=== PATIENT | female | born 1975 | race Caucasian/White ===

== ENCOUNTER 2022-08-27 16:29 | Inpatient (IN) | payer BC, MEDICAID, SELFPAY ==
[2022-08-27] VITALS (55 sets, daily range): BP systolic 119–162; BP diastolic 84–121; PULSE 74–108; RESP 14–28; TEMP 36.7; O2SAT 93–100
--- NOTE | 2022-08-27 | XRR_ITS ---
PROCEDURE INFORMATION: Exam: XR Chest Exam date and time: 08/27/2022 4:46 PM Age: 47 years old Clinical indication: Pain; Hip; Left; Additional info: Fall/trauma/pain TECHNIQUE: Imaging protocol: Radiologic exam of the chest. Views: 1 view. COMPARISON: No relevant prior studies available. FINDINGS: Lungs: Unremarkable. No consolidation. Pleural spaces: Unremarkable. No pleural effusion. No pneumothorax. Heart/Mediastinum: Unremarkable. No cardiomegaly. Bones/joints: Slight scoliosis. IMPRESSION: No acute findings MTDD
--- NOTE | 2022-08-27 16:36 | XRR_ITS ---
PROCEDURE INFORMATION: Exam: XR Chest Exam date and time: 08/27/2022 4:46 PM Age: 47 years old Clinical indication: Pain; Hip; Left; Additional info: Fall/trauma/pain TECHNIQUE: Imaging protocol: Radiologic exam of the chest. Views: 1 view. COMPARISON: No relevant prior studies available. FINDINGS: Lungs: Unremarkable. No consolidation. Pleural spaces: Unremarkable. No pleural effusion. No pneumothorax. Heart/Mediastinum: Unremarkable. No cardiomegaly. Bones/joints: Slight scoliosis.
--- NOTE | 2022-08-27 16:36 | XRR_ITS ---
PROCEDURE INFORMATION: Exam: XR Left Hip Exam date and time: 08/27/2022 4:46 PM Age: 47 years old Clinical indication: Hip pain; Left hip; Additional info: Fall/trauma/severe pain; One view pelvis too please TECHNIQUE: Imaging protocol: Radiologic exam of the Left hip. Views: 2 or 3 views hip with pelvis when performed. COMPARISON: No relevant prior studies available. FINDINGS: Bones/joints: Moderately displaced and comminuted acute left hip intertrochanteric fracture. No femoral head dislocation. Soft tissues: Unremarkable. XR/XR hip LT 2-3V wo/w pel* [id number] IMPRESSION: Left hip acute surgical fracture.
--- NOTE | 2022-08-27 16:37 | ED_ITS ---
Documented by User: MYRTLE Hui 09/10/22 07:02 HPI - Extremity Injury (Lower) General: Chief Complaint: Extremity Injury, Lower Stated Complaint: LEG PAIN Time Seen by Provider: 08/27/22 16:32 Source: patient and EMS Mode of arrival: EMS Limitations: no limitations History of Present Illness: Patient is a 47-year-old female presents to ED today via EMS for complaints of severe left hip and thigh pain following a fall. Patient states she tripped over her shoelaces and fell directly onto the left hip and has had excruciating pain ever since. She denies any other injury sustained during the fall. She has no known medical problems. complaint: hip injury and thigh injury Onset (ago): minute(s) Injury: Left: hip Place: home Severity: severe Relieving factors: nothing Exacerbating factors: movement and palpation Context: fall and direct blow Associated symptoms: Reports inability to bear weight Other symptoms: none Review of Systems 2 Card: Denies: chest pain Resp: Denies: dyspnea GI: Denies: abdominal pain : Denies: flank pain Musc: Reports: joint pain (L hip ); Denies: neck pain or back pain Neuro: Denies: headache(s), numbness in extremities, weakness in extremities or sensory changes PFS ED PFSH: Medical History (Updated 09/01/22 @ 00:00 by PROSPER Ivory) Fracture, intertrochanteric, left femur IBS (irritable bowel syndrome) Sciatic nerve injury Surgical History (Updated 08/27/22 @ 19:31 by Santiago Alvarez MD) No pertinent past surgical history Family History (Updated 08/27/22 @ 19:32 by Santiago Alvarez MD) Denies family history of Chronic kidney disease (CKD) Social History (Updated 08/27/22 @ 19:33 by Santiago Alvarez MD) Smoking and tobacco status: never smoked Alcohol intake: never Physical Exam Const: COMMON NORMALS: average body habitus, patient oriented x3, no limitations, healthy appearing, alert and well nourished GENERAL APPEARANCE: cooperative and in distress (pt in significant discomfort) HENMT: COMMON NORMALS: normocephalic and atraumatic HEAD & SCALP: normal to inspection, normocephalic and atraumatic FACE & SINUS: normal facial exam Neck/C-Spine: COMMON NORMALS: full ROM GENERAL: Yes normal visual inspection CERVICAL SPINE: No pain with cervical ROM and No Cervical spine tenderness Chest: COMMONS NORMALS: normal inspection of the chest and normal palpation of entire chest wall Resp: COMMON NORMALS: normal respiratory effort and clear to auscultation bilaterally AUSCULTATION: clear to auscultation bilaterally Cardio: COMMON NORMALS: regular rhythm RATE: tachycardic (thought to be a response to pain as patient is extremely uncomfortable) RHYTHM: regular rhythm GI: COMMON NORMALS: Normal to inspection, nondistended, normoactive bowel s ounds present, Soft to palpation and non-tender PALPATION: Yes Soft to pa lpation : COMMON NORMALS: Yes no CVA tenderness BLADDER/KIDNEY EXAM: Yes no CVA tenderness Back/Pelvis: COMMON NORMALS: no CVA tenderness, thoracic and lumbar spine normal to inspection, no thoracic nor lumbar tenderness and thoraco-lumbar ROM normal Extremity: GENERAL: Yes normal exam except as noted LEFT LOWER EXTREMITY: Yes hip joint and Yes upper leg OTHER: patient having severe pain to anteriolateral portion of L hip and proximal thi gh; there does appear to be appreciable swelling noted; no ecchymosis; no obvious dislocation however full palpation/ROM testing were unable to be performed secondary to pain; she has good distal pulses, cap refill, and sensation Neuro: STACIA COMA SCALE: document GCS findings Whitethorn coma scale eye opening: Spontaneous Stacia coma scale verbal response: Orientated Stacia coma scale motor response: Obey commands Whitethorn coma scale total score: 15 COMMON NORMALS: patient oriented x3 SENSORIUM/ORIENTATION: Yes alert Skin: TRAUMA: no lacerations or abrasions Course Consultations: Consultation #1: Dr. Gallegos-recommends admit to hospitalist and he will consult on patient, would like XRs of her pelvis, femur, knee, recommend pain medications, ice, elevation, nonweightbearing, NPO at midnight, plan for OR tomorrow Vital Signs: Vital signs: Vital Signs Temperature 97.8 F 08/31/22 12:39 Pulse Rate 101 H 08/31/22 12:39 Respiratory Rate 18 08/31/22 12:39 Blood Pressure 157/82 08/31/22 12:39 Pulse Oximetry 99 08/31/22 12:39 Oxygen Delivery Me thod 08/31/22 08:00 Oxygen Flow Rate 2 08/28/22 09:21 MDM - Extremity Injury (Lower) Medical Decision Making With a surgical hip fracture. I spoken to Dr. Gallegos who recommends admission to hospitalist and he will consult. I have spoken to Dr. Romero and he will assume care of patient and speak to hospitalist. Lab Data 08/27/22 17:06 08/27/22 17:06 Radiology Impressions Femur X-Ray 08/27/22 17:13 IMPRESSION: 1. Left hip acute surgical fracture. 2. The mid to distal left femur shows no acute fracture. Knee X-Ray 08/27/22 17:13 IMPRESSION: No acute findings. Pelvis X-Ray 08/27/22 17:13 IMPRESSION: Left hip acute surgical fracture. Hip/Pelvis X-Ray 08/28/22 08:27 IMPRESSION: 1. Internal orthopedic fixation involving an intertrochanteric fracture of the left hip. Alignment is satisfactory for healing. Abdomen Ultrasound 08/30/22 13:23 IMPRESSION: 1. Normal gallbladder. 2. No renal obstruction. 3. Nonvisualization of the pancreas. Pelvis Ultrasound 08/30/22 13:23 IMPRESSION: Unremarkable transabdominal pelvic ultrasound. No endometrial abnormality. Recommend follow-up transvaginal imaging of the endometrium is vaginal bleeding persists. Laboratory Results WBC 14.7 10^3/uL (4.0-10.0) H 08/27/22 17:06 RBC 3.05 10^6/uL (4.1-5.3) L 08/27/22 17:06 Hgb 11.1 g/dL (11.5-15.3) L 08/27/22 17:06 Hct 33.1 % (37.0-47.0) L 08/27/22 17:06 MCV 108.5 fl (81-99) H 08/27/22 17:06 MCH 36.4 pg (28.0-34.0) H 08/27/22 17:06 MCHC 33.5 g/dL (30.0-36.0) 08/27/22 17:06 RDW 12.5 % (12.1-15.1) 08/27/22 17:06 Plt Count 250 10^3/cmm (130-400) 08/27/22 17:06 MPV 9.2 fL (7.4-10.4) 08/27/22 17:06 Neut % (Auto) 71.2 % 08/27/22 17:06 Lymph % (Auto) 20.4 % 08/27/22 17:06 Brooke % (Auto) 6.9 % 08/27/22 17:06 Eos % (Auto) 0.4 % 08/27/22 17:06 Baso % (Auto) 0.5 % 08/27/22 17:06 Neut # (Auto) 10.47 10^3/uL (1.8-7.7) H 08/27/22 17:06 Lymph # (Auto) 3.0 10^3/uL (0.8-4.8) 08/27/22 17:06 Brooke # (Auto) 1.0 10^3/uL (0.2-0.9) H 08/27/22 17:06 Eos # (Auto) 0.1 10^3/uL (0.0-0.8) 08/27/22 17:06 Baso # (Auto) 0.1 10^3/uL (0.0-0.1) 08/27/22 17:06 Nucleated RBC % (auto) 0 % 08/27/22 17:06 Nucleated RBCs # 0.0 /100WBC 08/27/22 17:06 Sodium 133 mmol/L (136-145) L 08/27/22 17:06 Potassium 3.7 mmol/L (3.5-5.1) 08/27/22 17:06 Chloride 97 mmol/L (98-107) L 08/27/22 17:06 Carbon Dioxide 22 mmol/L (22-29) 08/27/22 17:06 Anion Gap 17.7 (5-19) 08/27/22 17:06 BUN 8 mg/dL (6-20) 08/27/22 17:06 Creatinine 0.7 mg/dL (0.5-0.9) 08/27/22 17:06 GFR Calculation 90.5 mL/min (90-130) 08/27/22 17:06 Glucose 174 mg/dL (65-115) H 08/27/22 17:06 Calculated Osmolality 279 mOsm/kg (285-295) L 08/27/22 17:06 Calcium 9.1 mg/dL (8.5-10.5) 08/27/22 17:06 Total Bilirubin 0.4 mg/dL (0.15-1.2) 08/27/22 17:06 AST 41 U/L (0-32) H 08/27/22 17:06 ALT 21 U/L (0-33) 08/27/22 17:06 Alkaline Phosphatase 110 U/L (35-105) H 08/27/22 17:06 Total Protein 7.3 g/dL (6.6-8.7) 08/27/22 17:06 Albumin 4.1 g/dL (3.5-5.2) 08/27/22 17:06 Globulin 3.2 g/dL (1.3-4.6) 08/27/22 17:06 Procalcitonin 0.03 ng/mL (0-0.5) 08/27/22 18:27 TSH 5.69 uIU/mL (0.27-4.20) H 08/27/22 18:27 Discharge Plan Discharge Patient Disposition: Admitted As Inpatient Admit Provider: Agnes Monroy Clinical Impression: Fracture of femoral neck, left Condition: Stable Discharge Diet: Advance as tolerated Discharge Activity: Increase activity as tolerated Coding Level of Care Code ED Provider Contracting Consultant for Chg Fwd Exam Comprehensive Documented by User: Manoj Romero MD 08/27/22 17:38 HPI - Extremity Injury (Lower) General: Chief Complaint: Extremity Injury, Lower Stated Complaint: LEG PAIN Time Seen by Provider: 08/27/22 16:32 [facility] ED PFSH: Medical History (Updated 09/01/22 @ 00:00 by PROSPER Ivory) Fracture, intertrochanteric, left femur IBS (irritable bowel syndrome) Sciatic nerve injury Surgical History (Updated 08/27/22 @ 19:31 by Santiago Alvarez MD) No pertinent past surgical history Family History (Updated 08/27/22 @ 19:32 by Santiago Alvarez MD) Denies family history of Chronic kidney disease (CKD) Social History (Updated 08/27/22 @ 19:33 by Santiago Alvarez MD) Smoking and tobacco status: never smoked Alcohol intake: never Physical Exam Neuro: STACIA COMA SCALE: document GCS findings Whitethorn coma scale total score: 15 Course Vital Signs: Vital signs: Vital Signs Temperature 97.8 F 08/31/22 12:39 Pulse Rate 101 H 08/31/22 12:39 Respiratory Rate 18 08/31/22 12:39 Blood Pressure 157/82 08/31/22 12:39 Pulse Oximetry 99 08/31/22 12:39 Oxygen Delivery Me thod 08/31/22 08:00 Oxygen Flow Rate 2 08/28/22 09:21 MDM - Extremity Injury (Lower) Medical Decision Making With a surgical hip fracture. I spoken to Dr. Gallegos who recommends admission to hospitalist and he will consult. I have spoken to Dr. Romero and he will assume care of patient and speak to hospitalist. Received signout from Negin. Patient here after mechanical fall with left femoral neck fracture. I discussed the case with Dr. Monroy the hospitalist and she will admit with surgery consult. Lab Data 08/27/22 17:06 08/27/22 17:06 Radiology Impressions Femur X-Ray 08/27/22 17:13 IMPRESSION: 1. Left hip acute surgical fracture. 2. The mid to distal left femur shows no acute fracture. Knee X-Ray 08/27/22 17:13 IMPRESSION: No acute findings. Pelvis X-Ray 08/27/22 17:13 IMPRESSION: Left hip acute surgical fracture. Hip/Pelvis X-Ray 08/28/22 08:27 IMPRESSION: 1. Internal orthopedic fixation involving an intertrochanteric fracture of the left hip. Alignment is satisfactory for healing. Abdomen Ultrasound 08/30/22 13:23 IMPRESSION: 1. Normal gallbladder. 2. No renal obstruction. 3. Nonvisualization of the pancreas. Pelvis Ultrasound 08/30/22 13:23
[2022-08-27] MEDS: morphine 4 mg/mL SDV 1 mL IVP (16:44)
[2022-08-27] MEDS: ondansetron 2 mg/ML SDV 2 mL 4 MG IVP (16:45)
[2022-08-27] MEDS: sodium chloride 0.9% 1,000 ML 999 ML IV ×2 (17:08→19:44)
--- NOTE | 2022-08-27 17:13 | XRR_ITS ---
PROCEDURE INFORMATION: Exam: XR Left Knee Exam date and time: 08/27/2022 6:07 PM Age: 47 years old Clinical indication: Injury or trauma; Fall; Fracture, traumatic; Closed fracture; Femur; Left; Additional info: Fall, trauma TECHNIQUE: Imaging protocol: Radiologic exam of the Left knee. Views: 3 views. COMPARISON: No relevant prior studies available. FINDINGS: Bones/joints: No acute fracture or dislocation is noted. The skeletal structures seem age-appropriate. Soft tissues: Unremarkable. XR/XR knee LT 3V* [id number] IMPRESSION: No acute findings.
--- NOTE | 2022-08-27 17:13 | XRR_ITS ---
PROCEDURE INFORMATION: Exam: XR Left Femur Exam date and time: 08/27/2022 6:07 PM Age: 47 years old Clinical indication: Injury or trauma; Fall; Fracture, traumatic; Closed fracture; Femur and patella or knee; Left; Additional info: Fall/trauma TECHNIQUE: Imaging protocol: Radiologic exam of the Left femur. Views: 2 views. COMPARISON: CR (PELVIS, ) 08/27/2022 4:46 PM FINDINGS: Bones/joints: Moderately displaced and comminuted acute left hip intertrochanteric fracture. No femoral head dislocation. Soft tissues: Mild left thigh soft tissue swelling. XR/XR femur LT min 2V* [id number] IMPRESSION: 1. Left hip acute surgical fracture. 2. The mid to distal left femur shows no acute fracture.
--- NOTE | 2022-08-27 17:13 | XRR_ITS ---
PROCEDURE INFORMATION: Exam: XR Pelvis Exam date and time: 08/27/2022 6:07 PM Age: 47 years old Clinical indication: Pain and injury or trauma; Fall; Fracture of pelvis & hip; Traumatic fracture; Neck of femur; Closed fracture; Hip pain; Left hip; Injury date: 08/27/22; Additional info: Fall, trauma TECHNIQUE: Imaging protocol: Radiologic exam of the pelvis. Views: 1 or 2 view. COMPARISON: CR (PELVIS, ) 08/27/2022 4:46 PM FINDINGS: Bones/joints: Moderately displaced and comminuted acute left hip intertrochanteric fracture. No femoral head dislocation. Soft tissues: Unremarkable. XR/XR pelvis 1-2V* [id number] IMPRESSION: Left hip acute surgical fracture.
[2022-08-27 17:15] LABS: Basophils # 0.1 10^3/uL (0.0-0.1); Basophils % 0.5 %; Eosinophils # 0.1 10^3/uL (0.0-0.8); Eosinophils % 0.4 %; Hematocrit 33.1 % (37.0-47.0); Hemoglobin 11.1 g/dL (11.5-15.3); Lymphocytes % 20.4 %; Mean Corpuscular HGB Conc 33.5 g/dL (30.0-36.0); Mean Corpuscular Hemoglobin 36.4 pg (28.0-34.0); Mean Corpuscular Volume 108.5 fl (81-99); Mean Platelet Volume 9.2 fL (7.4-10.4); Monocytes % 6.9 %; Neutrophils # 10.47 10^3/uL (1.8-7.7); Neutrophils % 71.2 %; Nucleated Red Blood Cells % 0 %; Platelet Count 250 10^3/cmm (130-400); Red Blood Count 3.05 10^6/uL (4.1-5.3); Red Cell Distribution Width 12.5 % (12.1-15.1); White Blood Count 14.7 10^3/uL (4.0-10.0)
--- NOTE | 2022-08-27 17:38 | ECG_ITS ---
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 Measurements Intervals Ola Rate: 97 P: 75 NH: 123 QRS: 76 QRSD: 97 T: 63 QT: 367 QTc: 468 Interpretive Statements SINUS RHYTHM POSSIBLE LEFT ATRIAL ENLARGEMENT [-0.1mV P-WAVE IN V1/V2] MODERATE ST DEPRESSION [0.05+ mV ST DEPRESSION] No previous ECG available for comparison Electronically Signed On 08-27-2022 19:49:17 INFANT AND TODDLER TEACHER by Serge Sampson M.D. [email or web address]
[2022-08-27 17:39] LABS: Alanine Aminotransferase 21 U/L (0-33); Albumin Level 4.1 g/dL (3.5-5.2); Alkaline Phosphatase 110 U/L (35-105); Anion Gap 17.7 (5-19); Aspartate Amino Transferase 41 U/L (0-32); Blood Urea Nitrogen 8 mg/dL (6-20); Calcium 9.1 mg/dL (8.5-10.5); Carbon Dioxide 22 mmol/L (22-29); Chloride 97 mmol/L (98-107); Globulin 3.2 g/dL (1.3-4.6); Glomerular Filtration Rate 90.5 mL/min (90-130); Glucose 174 mg/dL (65-115); Osmolality Calculated 279 mOsm/kg (285-295); Potassium 3.7 mmol/L (3.5-5.1); Sodium 133 mmol/L (136-145); Total Bilirubin 0.4 mg/dL (0.15-1.2); Total Protein 7.3 g/dL (6.6-8.7)
[2022-08-27] MEDS: HYDROmorphone 1 mg/mL INJ 1 mL 0.5 MG IVP (17:53)
--- NOTE | 2022-08-27 18:38 | P.HP_ITS ---
Providers/Chief Complaint Primary Care Provider: Rand Moy Chief Complaint: LEG PAIN History of Present Illness Madeline Chavez is a 47 year old female who presents today after sustaining a fall on concrete ground at a gas station. Patient is stating that she does not have any significant medical history other than sciatica, IBS, she does not have any history of diabetes hypertension CHF or diabetes, today she tripped over because of her untied shoelaces at the gas station and sustained a fall. In the ER she has been diagnosed with left femoral neck fracture Dr. Gallegos has been consulted. She is going for surgery in the morning. She is hypertensive at the time of evaluation, left leg is shortened and rotated outwards I have requested Teresa catheter placement. She is very anxious at this point Review of Systems Const: Denies: fever(s) Eyes: Denies: change in vision ENMT: Denies: throat pain Card: Denies: chest pain Resp: Denies: dyspnea GI: Denies: abdominal pain : Denies: flank pain Musc: Denies: neck pain Skin/Breast: Denies: rash Neuro: Denies: headache(s) Psych: Reports: anxiety Endo: Denies: polyuria Jignesh/Lymph: Denies: easy bruising All/Imm: Denies: urticaria Medications/Allergies Home Medications Medication Instructions Recorded Confirmed Last Taken Type dicyclomine 20 mg tablet 20 mg PO DAILY PRN IBS Symptoms 08/27/22 08/27/22 Unknown History gabapentin 300 mg capsule 300 mg PO DAILY PRN Pain 08/27/22 08/27/22 Unknown History Allergies Allergy/AdvReac Type Severity Reaction Status Date / Time No Known Allergies Allergy Verified 08/27/22 16:35 PFSH Acute PFSH: Medical History (Updated 08/27/22 @ 19:31 by Santiago Alvarez MD) IBS (irritable bowel syndrome) Sciatic nerve injury Surgical History (Updated 08/27/22 @ 19:31 by Santiago Alvarez MD) No pertinent past surgical history Family History (Updated 08/27/22 @ 19:32 by Santiago Alvarez MD) Denies family history of Chronic kidney disease (CKD) Social History (Updated 08/27/22 @ 19:33 by Santiago Alvarez MD) Smoking and tobacco status: never smoked Alcohol intake: never Substance/Drug Use: never Vitals/I&O/Wt Last Vital Signs Temp 98.0 F 08/27/22 16:35 Pulse 108 H 08/27/22 16:35 Resp 20 H 08/27/22 17:53 BP 161/121 08/27/22 17:50 Pulse Ox 97 08/27/22 17:50 Weight last 48 hrs Weight 56.699 kg Physical Exam Narrative: Patient is awake and alert Anxious appearing Tachycardic and hypertensive Left leg is rotated outward and is short No signs of vascular compromise EOMI, PERRLA Abdomen soft S1, S2 sinus tachycardia Family is at the bedside Data 08/27/22 17:06 08/27/22 17:06 A&P Assessment and plan (1) Fracture of femoral neck, left: Plan Hip fracture N.p.o. after midnight Dr. Gallegos has been consulted DVT prophylaxis with SCDs Opioids along bowel regimen Gentle fluid hydration overnight Considering young age, patient does not need any cardiac work-up before her surgery Will check TSH Full code Attestations Medical Necessity Statement*: Anticipating more than 2 midnights for management of hip fracture Time Spent in Patient Care: 40 Coding Level of Care Code Acute Tinning Machine Set Up Operator for Daniela Fwd Diagnoses Fracture of femoral neck, left S72.002A
[2022-08-27 19:06] LABS: Procalcitonin 0.03 ng/mL (0-0.5)
[2022-08-27] MEDS: enoxaparin 40 mg/0.4 mL Syringe SUBCUT (19:47)
[2022-08-27] MEDS: HYDROmorphone 1 mg/mL INJ 1 mL IVP (21:06)
--- NOTE | 2022-08-27 21:07 | PC.NURSE ---
pt report taken by No CASTRO.
--- NOTE | 2022-08-27 21:42 | P.CONIM_ITS ---
Providers/Reason For Consult Consulting Physician/Specialty*: Kadeem Gallegos DO/orthopedic surgery Reason for Consult*: Displaced left intertrochanteric femur fracture Requesting Physician: Negin Ness PA-C Attending Physician: Agnes Monroy MD Primary Care Provider: Rand Moy History of Present Illness History of Present Illness Madeline Chavez is a 47 year old female who sustained a ground-level fall directly onto her left hip very hard on concrete. She states she knew when she was following that she was going to break something. Patient denies any prior pain in her left hip prior to injury. She is a community ambulator. She has a 20- year history of smoking but has quit. She denies any heart or lung issues at baseline. Denies being on any blood thinners. Denies any previous history of cancer or malignancy. Past medical history consistent with low back pain which she states she has a disc protrusion which she is on gabapentin at baseline and she does have sciatica. She did eat earlier this afternoon. She was brought to the emergency department and was found to have a displaced left intertrochanteric femur fracture. Hospitalist on board for admission and medical management preoperative clearance and orthopedics was consulted for treatment recommendations of left intertrochanteric femur fracture. Patient denies loss of consciousness or any other injuries or pain at this time. Patient's present with family at bedside. Review of Systems General: Reports: 10 or more systems reviewed and unremarkable except in HPI and below Const: Denies: fever(s) Card: Denies: chest pain Resp: Denies: dyspnea GI: Denies: nausea Musc: Reports: joint pain and joint swelling Medications/Allergies Home Medications Medication Instructions Recorded Confirmed Last Taken Type dicyclomine 20 mg tablet 20 mg PO DAILY PRN IBS Symptoms 08/27/22 08/27/22 Unknown History gabapentin 300 mg capsule 300 mg PO DAILY PRN Pain 08/27/22 08/27/22 Unknown History Allergies Allergy/AdvReac Type Severity Reaction Status Date / Time No Known Allergies Allergy Verified 08/27/22 16:35 Current Medications Generic Name Dose Route Start Last Admin Trade Name Freq PRN Reason Stop Dose Admin Enoxaparin Sodium 40 mg 08/27/22 18:15 08/27/22 19:47 Enoxaparin 40 Mg/0.4 Ml Syringe SUBCUT 40 mg Q24H ARTURO Administration PFSH Acute PFSH: Medical History (Updated 08/27/22 @ 19:31 by Santiago Alvarez MD) IBS (irritable bowel syndrome) Sciatic nerve injury Surgical History (Updated 08/27/22 @ 19:31 by Santiago Alvarez MD) No pertinent past surgical history Family History (Updated 08/27/22 @ 19:32 by Santiago Alvarez MD) Denies family history of Chronic kidney disease (CKD) Social History (Updated 08/27/22 @ 19:33 by Santiago Alvarez MD) Smoking and tobacco status: never smoked Alcohol intake: never Substance/Drug Use: never Vitals/I&O/Wt Last Vital Signs Temp 98.0 F 08/27/22 16:35 Pulse 74 08/27/22 21:32 Resp 14 08/27/22 21:32 BP 125/84 08/27/22 21:32 Pulse Ox 98 08/27/22 21:32 08/27/22 08/27/22 08/27/22 06:59 14:59 22:59 Intake Total 1999 Balance 1999 Weight last 48 hrs Weight 125 lb Physical Exam Narrative: Constitutional patient in severe discomfort secondary to pain. Examination guarded secondary to pain. Patient frail and appears slightly under nourished. HEENT atraumatic and normocephalic Respiratory?no acute respiratory distress no retractions Cardio?peripheral pulses palpable MSK?examination of the bilateral upper extremities demonstrates no tenderness palpation of the shoulders elbows wrists or hands with normal range of motion of these joints sensation tact light touch to the bilateral upper extremities distal pulses palpable. Examination of the right lower extremity demonstrates no tenderness to palpation of the right hip knee foot and ankle. She is able to gently range these joints with no pain or discomfort she has a negative logroll. Sensation tact light touch distally. Patient is able to wiggle her toes plantarflex and dorsiflex ankle. Examination of the left lower extremity tenderness to palpation of the left hip positive logroll. Unable to perform Stinchfield secondary to pain. She has sensation tact light touch at the SPN/DPN/tibial/saphenous/sural nerve distribution. She is able to wiggle her toes as well as EHL is intact. She can only subtly plantarflex her foot and unwilling to dorsiflex secondary to pain and discomfort. Mild tenderness to palpation at the left knee. Distal pulses palpable. Compartments are soft compressible. Data 08/27/22 17:06 08/27/22 17:06 Xray Ortho: My impression: X-rays of the pelvis, femur hip and knee reviewed in person interpreted by myself demonstrating comminuted and displaced left intertrochanteric femur fracture. No pathologic lesion noted. No other fracture dislocations noted. A&P Assessment and plan (1) Fracture of femoral neck, left: Plan Hip fracture N.p.o. after midnight Internal medicine as primary and appreciate medical management?preoperative clearance DVT prophylaxis with SCDs, hold a.m. anticoagulation will transition to Lovenox postoperatively Nonweightbearing left lower extremity Images reviewed Labs reviewed Plan for OR tomorrow for left intertrochanteric femur fracture ORIF with cephalomedullary nail. Detailed op treatment options for patient as far as nonoperative and operative intervention. This point time for pain control as well as early mobilization would recommend surgical intervention. She detail out the risk benefits complications alternatives to surgical intervention. Risks of surgery include but not limited to make it better, make it worse, malunion, nonunion hardware failure, infection, blood clot, heart attack, stroke, on the table, injury to nerves or vessels. Understanding these risks he agrees to proceed with surgical intervention. All questions been answered at this time. We will add her onto the surgery schedule tomorrow ismael ayaan for a left intertrochanteric femur fracture open reduction internal fixation with cephalomedullary nail. Review of her images demonstrate no evidence of a pathologic injury. At this point time do not feel as though any further need on imaging is necessary at we will treat with ORIF. Did discuss with patient and we will send some of patient's canal reamings to pathology to rule out make sure there is no evidence of any pathologic lesion which is always just given patient's younger age to sustain hip fracture. However I do feel she did have a higher energy of a direct fall on hard concrete and was unfortunately unable to brace herself and patient does have within her body type with slight malnutrition. We will take care for surgery tomorrow. All questions been answered at this time. 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
[2022-08-27] MEDS: temazepam 15 mg Capsule PO (21:57)
[2022-08-27] MEDS: morphine IR 15 mg Tablet PO (21:57)
[2022-08-27] MEDS: ALPRAZolam 0.5 mg Tablet PO (21:57)
[2022-08-27] MEDS: sodium chloride 0.9% 1,000 ML 75 ML IV (22:00)
[2022-08-27 22:46] LABS: Thyroid Stimulating Hormone 5.69 uIU/mL (0.27-4.20)
[2022-08-27 23:21] LABS: Add Urine Microscopic? NO; Charge for UA Resulting for Rev
[2022-08-27] MEDS: HYDROmorphone 1 mg/mL INJ 1 mL 0.4 MG IVP (23:26)
--- NOTE | 2022-08-27 23:28 | PC.NURSE ---
Referred pt to Dr. Alvarez for review of uncontrolled pain. NO received and noted for Dilaudid 0.4mg IVP x 1 dose now. Dilaudid pulled from [facility] and administered.
[2022-08-28] VITALS (30 sets, daily range): BP systolic 112–151; BP diastolic 67–100; PULSE 83–120; RESP 10–18; TEMP 36.6–37.5; O2SAT 94–100
--- NOTE | 2022-08-28 | XR_ITS ---
WS: [id number] Exam: XR hip LT 2-3V wo/w pel* [id number] Date/Time of Exam: 08/28/2022 12:00 AM Reason For Exam: orif left hip Intraoperative C-arm images of the left hip are submitted for evaluation. Intertrochanteric fracture of the left hip is now stabilized with an intramedullary adrienne and femoral n crow screw. Alignment appears to be satisfactory for healing. XR/XR hip LT 2-3V wo/w pel* [id number] IMPRESSION: 1. Satisfactory ORIF involving an intertrochanteric fracture of the left hip.
[2022-08-28 00:08] LABS: Bilirubin Urine Neg (Negative); Blood Urine Neg (Negative); Glucose Urine UA Norm (Normal); Ketones Urine Negative (Negative); Leukocyte Esterase Urine Negative (Negative); Nitrate Urine Negative (Negative); Protein Urine Neg (Negative); Urine Appearance Clear (CLEAR); Urine Color Yellow (Yellow); Urobilinogen Urine Norm (Negative); pH Urine 5 (5-7)
[2022-08-28 01:39] LABS: Anion Gap 13.2 (5-19); Blood Urea Nitrogen 6 mg/dL (6-20); Calcium 8.1 mg/dL (8.5-10.5); Carbon Dioxide 23 mmol/L (22-29); Chloride 105 mmol/L (98-107); Glomerular Filtration Rate 133.4 mL/min (90-130); Glucose 131 mg/dL (65-115); Magnesium 1.6 mg/dL (1.7-2.3); Osmolality Calculated 283 mOsm/kg (285-295); Potassium 4.2 mmol/L (3.5-5.1); Sodium 137 mmol/L (136-145)
[2022-08-28] MEDS: HYDROmorphone 1 mg/mL INJ 1 mL 0.2 MG IVP (03:11)
[2022-08-28] MEDS: morphine IR 15 mg Tablet PO (04:46)
--- NOTE | 2022-08-28 06:12 | PC.NURSE ---
Pt left for surgery at this time.
[2022-08-28 06:35] LABS: OR HCG Qualitative Urine Negative (Negative)
[2022-08-28] MEDS: sodium chloride 0.9% 1,000 ML 30 ML IV (06:38)
--- NOTE | 2022-08-28 06:53 | W.PM.OPSUD ---
Surgery/Procedure H&P Update DATE OF PROCEDURE: August 28, 2022 DATE H&P PERFORMED: 08/27/22 CHANGES TO PREVIOUS DOCUMENTATION: None. Patient's pain better under control unable to have better examination to the left lower extremity. Patient is able to wiggle toes as well as plantarflex and dorsiflex ankle. Sensation intact to light touch distally. Distal pulses palpable. Once again reviewed risk benefits complication alternatives surgical nonsurgical treatment options. Understanding her wrist she agrees to proceed with surgical intervention today. She has been medically optimized. PREOP DIAGNOSIS: Left intertrochanteric femur fracture PRIMARY INDICATION FOR PROCEDURE: Displaced left intertrochanteric femur fracture PLANNED PROCEDURE: Operation Date: 08/28/22 07:00 Proposed Procedures p Trochanteric Femoral Nail(Left) - Kadeem Gallegos DO
[2022-08-28] MEDS: HYDROmorphone 1 mg/mL INJ 1 mL 0.5 MG IVP ×3 (06:57→09:01)
[2022-08-28] MEDS: ceFAZolin 2,000 MG in sodium chloride 0.9% (plus) 50 ML 100 MG IV ×3 (07:02→23:45)
[2022-08-28] MEDS: tranexamic acid 1,000 mg/10mL SDV 1000 MG IV (07:25)
--- NOTE | 2022-08-28 07:30 | ANES.PREANE2 ---
Pre-Anesthetic Assessment Height/Weight: Weight 56.699 kg Temp Pulse Resp BP Pulse Ox O2 Del Method 98.9 F 100 18 140/89 99 08/28/22 06:20 08/28/22 06:20 08/28/22 06:57 08/28/22 06:20 08/28/22 06:20 08/28/22 06:20 Preop Diagnosis: Left intertrochanteric femur fracture Operation Date: 08/28/22 07:00 Proposed Procedures p Trochanteric Femoral Nail(Left) - Kadeem Gallegos DO Familial anesthetic complications: none Was Beta Vipul taken within 24 hours: N/A Was Clonidine taken within 24 hours: N/A Last intake: Intake Last Liquid Date 08/27/22 Last Liquid Time 23:30 Last Solid Date 08/27/22 Last Solid Time 19:00 Social No alcohol and No tobacco (h/o smoking) Exam alert, oriented x 3, clear to auscultation bilaterally and regular rate & rhythm Airway Submandibular: within normal limits Cervical ROM: within normal limits Mallampati: Class II Dentition: chipped Musc/skel Lower Back Pain (radicular symptoms) Anesthetic Plan ASA status: 2 Anesthesia: General Medications/Allergies Home Medications Medication Instructions Recorded Confirmed Last Taken Type dicyclomine 20 mg tablet 20 mg PO DAILY PRN IBS Symptoms 08/27/22 08/27/22 Unknown History gabapentin 300 mg capsule 300 mg PO DAILY PRN Pain 08/27/22 08/27/22 Unknown History Allergies Allergy/AdvReac Type Severity Reaction Status Date / Time No Known Allergies Allergy Verified 08/27/22 16:35 Current Medications Generic Name Dose Route Start Last Admin Trade Name Riosq PRN Reason Stop Dose Admin Alprazolam 0.5 mg 08/27/22 21:50 08/27/22 21:57 Alprazolam 0.5 Mg Tablet PO 0.5 mg BID PRN Administration AGITATION Enoxaparin Sodium 40 mg 08/27/22 18:15 08/27/22 19:47 Enoxaparin 40 Mg/0.4 Ml Syringe SUBCUT 40 mg Q24H ARTURO Administration Hydromorphone HCl 0.2 mg 08/27/22 21:50 08/28/22 03:11 Hydromorphone 1 Mg/Ml Inj 1 Ml IVP 0.2 mg Q4H PRN Administration pain Hydromorphone HCl 0.5 mg 08/28/22 06:45 08/28/22 06:57 Hydromorphone 1 Mg/Ml Inj 1 Ml IVP 0.5 mg ONCE PRN Administration For preop pain/anxiety Sodium Chloride 1,000 mls @ 75 mls/hr 08/27/22 18:15 08/27/22 22:00 Sodium Chloride 0.9% IV 75 mls/hr .[id number] ARTURO Administration Sodium Chloride 1,000 mls @ 30 mls/hr 08/28/22 06:30 08/28/22 06:38 Sodium Chloride 0.9% IV 30 mls/hr .Q24H ARTURO Administration Morphine Sulfate 15 mg 08/27/22 21:50 08/28/22 04:46 Morphine Ir 15 Mg Tablet PO 15 mg Q6H PRN Administration pAIN PFSH Anesthesia Medical History (Updated 08/27/22 @ 19:31 by Santiago Alvarez MD) IBS (irritable bowel syndrome) Sciatic nerve injury Surgical History (Updated 08/27/22 @ 19:31 by Santiago Alvarez MD) No pertinent past surgical history Family History (Updated 08/27/22 @ 19:32 by Santiago Alvarez MD) Denies family history of Chronic kidney disease (CKD) Social History (Updated 08/27/22 @ 19:33 by Santiago Alvarez MD) Smoking and tobacco status: never smoked Alcohol intake: never Substance/Drug Use: never Data Anesthesia 08/27/22 17:06 08/28/22 01:03 Short CBC 08/27/22 Range/Units 17:06 WBC 14.7 H (4.0-10.0) 10^3/uL Hgb 11.1 L (11.5-15.3) g/dL Hct 33.1 L (37.0-47.0) % MCV 108.5 H (81-99) fl Plt Count 250 (130-400) 10^3/cmm Neut % (Auto) 71.2 % Neut # (Auto) 10.47 H (1.8-7.7) 10^3/uL BMP 08/27/22 08/28/22 17:06 01:03 Sodium 133 L 137 Potassium 3.7 4.2 Chloride 97 L 105 Carbon Dioxide 22 23 BUN 8 6 Creatinine 0.7 0.5 Glucose 174 H 131 H Calcium 9.1 8.1 L Liver Function 08/27/22 Range/Units 17:06 Total Bilirubin 0.4 (0.15-1.2) mg/dL AST 41 H (0-32) U/L ALT 21 (0-33) U/L Alkaline Phosphatase 110 H (35-105) U/L Albumin 4.1 (3.5-5.2) g/dL Urine 08/27/22 Range/Units 23:17 Urine Color Yellow (Yellow) Urine Appearance Clear (CLEAR) Urine pH 5 (5-7) Ur Specific [place] 1.020 (1.005-1.030) Urine Protein Neg (Negative) Urine Glucose (UA) Norm (Normal) Urine Ketones Negative (Negative) Urine Nitrate Negative (Negative) Urine Bilirubin Neg (Negative) Ur Leukocyte Esterase Negative (Negative) Blood Bank 08/28/22 03:00 Blood Type O Positive Rho(D) Type Positive Antibody Screen Negative Cardiac Studies: No Data to Display
--- NOTE | 2022-08-28 08:27 | XR_ITS ---
WS: [id number] Exam: XR hip LT 2-3V wo/w pel* [id number] Date/Time of Exam: 08/28/2022 8:47 AM Reason For Exam: postop left troch nail Comparison 08/27/2022. There is an intertrochanteric fracture of the left hip stabilized with an intramedullary adrienne and femo ral neck screw. Alignment is satisfactory for healing. Surgical skin clips are noted laterally. XR/XR hip LT 2-3V wo/w pel* [id number] IMPRESSION: 1. Internal orthopedic fixation involving an intertrochanteric fracture of the left hip. Alignment is satisfactory for healing.
--- NOTE | 2022-08-28 08:33 | P.OP_ITS ---
Brief Operative Note Date of procedure: 08/28/22 Pre-op diagnosis: Left intertrochanteric femur fracture Post-op diagnosis: same Procedure Done: Left intertrochanteric femur fracture ORIF with cephalomedullary nail Surgeon: Kadeem Gallegos Estimated blood loss (mL): 150 Complications: None Post-op Plan: patient taken to PACU in stable condition. Patient tolerated procedure without issues. Dressing on in place clean dry and intact will return to the floor. Receive appropriate pain medication postoperative antibiotics, DVT prophylaxis and postoperative TXA. Will be weightbearing as tolerated left lower extremity work with PT/OT internal medicine is primary. We will follow-up with me in the office in 2 weeks. Condition: stable Disposition: floor Coding Level of Care Code Acute Polisher Eyeglass Frames for Daniela Gomez
--- NOTE | 2022-08-28 08:34 | PM.PACU ---
PACU note Narrative: Patient taken to PACU in stable condition dressing on in place clean dry and intact. Patient is able to wiggle toes plantarflex dorsiflex ankle sensation tact light touch distally. Pain controlled. Will return to the floor. Exam: awake Disposition: back to floor
--- NOTE | 2022-08-28 08:40 | P.OP_ITS ---
Operative Report Date of procedure: August 28, 2022 Pre-op diagnosis: Preop Diagnosis Left intertrochanteric femur fracture Post-op diagnosis: Same Procedure done: Left intertrochanteric femur fracture ORIF with cephalomedullary nail Implants: Daina gamma nail 11 mm x 180 mm x 125 degree 10.5 mm x 100 mm lag screw 5 mm x 37.5 mm distal interlocking screw Pathology: Given patient's young age intramedullary canal reamings were sent for pathology to rule out any pathologic fracture Surgeon: Kadeem Gallegos DO Estimated blood loss: 150 mL IV fluids: 400 mL Urine output: 100 mL Complications: None Findings: See operative report narrative Condition: stable Disposition: floor Brief History: Patient is a 47-year-old female who sustained a ground-level fall sustaining a left intertrochanteric femur fracture she is brought to the emergency department seen evaluated orthopedics consulted internal medicine admitted for primary medical management preoperative clearance. X-ray findings consistent with stable left intertrochanteric femur fracture. She was bedded and medically optimized by the internal medicine team. On evaluation she has a stable intertrochanteric femur fracture recommendation would be a short gamma nail for earlier mobilization and pain control. We talked about risk benefits complication alternatives to surgical nonsurgical treatment options. Understanding her risk for surgery she agrees to proceed with surgical intervention. Given her young age we will send reamings of the femur for pathology just to rule out any pathologic fracture however on x-ray imaging there is no sign of the lesion and history reveals she had no pain prior to the left hip. She understands and agrees to proceed with with surgery at this time. All questions answered consent obtained. Procedure: Patient was seen evaluated in the preoperative holding area. Consent was reviewed and signed with patient. Correct extremity was then marked. Seen evaluated by anesthesia Parman was cleared for surgery she was taken back to the operative suite. She was underwent anesthesia per the Anesthesia Department was then placed onto the [place] table. Patient was then appropriately secured all bony prominences well-padded. Once properly anesthetized a final timeout was performed. Patient received appropriate preoperative antibiotics. X-ray images large C-arm was then brought into the operative suite and evaluated the fracture. A standard close reduction was then performed showing satisfactory reduction. This was held in place and the left lower extremity was then prepped and draped in standard orthopedic fashion. This point time a standard 5 cm incision was made proximal to the greater trochanter directly lateral of the left hip. Sharp scalpel incision was made through skin and subcutaneous tissue. I then utilized a Barrera to split the fascia could come directly down onto the greater trochanter. Inserted starting guidewire and the tip of the greater trochanter and was satisfied with position on AP and lateral planes this was advanced right to the level of the lesser trochanter and confirmed on multiple orthogonal images. Once satisfied with starting point placement I then introduced my opening reamer. Introduced opening reamer at this point time I subsequently passed my long ball-tipped guidewire this was confirmed to be intramedullary in orthogonal images. Next I sequentially reamed up to a size 13 and all reamings were collected and sent for pathology. I then selected a 11 mm nail by 180 mm x 125 degree this was loaded onto the AV guide and packed into appropriate depth. Once this was confirmed and the reduction was continually maintained I then subsequently introduced my lag screw sleeve locked this in appropriate position made a small skin incision through skin and subcutaneous tissue and IT band directly onto bone my guide sleeve was then separate directly onto bone and introduced my guidewire this was then passed in center center position with an appropriate tip to apex distance I did sheet slightly inferior to obtain more fixation along the calcar. Once satisfied with my tip to apex distance this was then subsequently measured it to be 100 mm. I then had My guidewire in place and then 6 utilized the TRAN.SL gamma lag screw reamer which was reamed to the appropriate depth and was satisfied with the screw size. Screw was then opened to the back table loaded in screw to the appropriate tip to apex distance of depth. At this point time I then utilized the gamma compression device and compressed through the nail across her fracture site maintaining reduction. Once this was done the setscrew was then placed and secured with excellent fixation. Next I then locked the rasheed l distally. I introduced the triple sleeve made a small incision through standard palpitate he is tissue directly onto bone. Drill guide was then inserted I subsequently drilled measured and placed in appropriate length distal interlocking screw 37.5 mm. This had excellent fixation. This completed by construct of satisfied with fixation and reduction. The guide was then removed and final x-rays were taken of AP and lateral of the hip showing stable left intertrochanteric femur fracture reduction and fixation. At this point the wounds were then thoroughly irrigated hemostasis was satisfactory. Incisions were closed in layered fashion with 0 Vicryl 2-0 Vicryl and esme. Silverlon dressings applied. Patient was then awake from anesthesia taken to PACU in stable condition. disposition: Patient taken to PACU in stable condition. Should be weightbearing as tolerated left lower extremity. Postoperative x-rays show stable reduction of fixation left intertrochanteric femur fracture with cephalomedullary nail. She received appropriate DVT prophylaxis as well as postoperative pain medication postoperative antibiotics and TXA. She will be managed by the internal medicine team as primary. She will follow-up with me in the office in 2 weeks. PT/OT. Patient understands agrees with current plan. All questions answered.
--- NOTE | 2022-08-28 10:13 | PC.CHAP ---
Pastoral Care Encounter/Spiritual Assessment Type of Contact [] Declined technician automatic visit [] Patient/Family/Request visit [] Outpatient visit [] Follow-up visit [] Physician referral [] Code/Alert [x] Routine visit [] Staff referral [] Actively dying [] Patient sleeping [] Family support [] [x] Out of room [] Palliative care [] [] Receiving care in room [] Pre-surgical visit [] Trauma [] Long length of stay [] ICU visit [] Other: Relational/Emotional Strength [] Patient feels connected with others/family/visitors/staff [] Distress [] Loneliness/isolation [] Abandonment Spirituality of Patient [] Person of Meg [] Attends Episcopalian of their Meg [] Believes in Prayer [] Reads Bible or Mormonism materials [] There are Spiritual issues to be addressed Hotel Lobby Concierge Interventions [] Prayer [] Active listening [] Non-anxious presence [] Spiritual/emotional support [] Crisis/trauma care [] Spiritual counseling [] Bereavement support [] Provided bereavement packet [] Provided Bible/devotional materials [] Provided toy/stuffed animal, coloring book to patient or family member [] Provided Communion [] Anointing/[place] [] Salvation [] Completed spiritual assessment [] Other: Impact on Illness or Injury [] Angry [] Fearful [] Anxious [] Often cries [] Exhaustion [] Unable to work [] Unable to attend muslim [] Unable to walk/stand [] Unable to read [] Unable to drive [] Unable to eat/drink [] Unable to sleep [] Unable to be with family [] Patient intubated [] Other: Summary Time spent with patient
[2022-08-28] MEDS: oxyCODONE 5 mg IR Tab/Cap PO ×3 (10:37→20:40)
[2022-08-28] MEDS: ketorolac 30 mg/mL INJ 15 MG IVP ×2 (10:37→21:17)
[2022-08-28] MEDS: calcium carb-vit d 600mg/400unit 1 Tablet 1 EACH PO ×2 (10:37→17:29)
[2022-08-28] MEDS: multivitamin therapeutic Tablet 1 TAB PO (10:37)
[2022-08-28] MEDS: sennosides-docusate Tablet 2 TAB PO (10:37)
--- NOTE | 2022-08-28 13:03 | P.PN_ITS ---
Subjective Subjective: Seen this morning. Patient still drowsy from anesthesia. She just returned from the OR after her surgery. States she feels a little thirsty but otherwise is doing okay. Pain is very well controlled at this time. Vitals/I&O/Wt Last Vital Signs Temp 98.1 F 08/28/22 12:00 Pulse 86 08/28/22 12:00 Resp 13 08/28/22 12:00 BP 112/67 08/28/22 12:00 Pulse Ox 94 08/28/22 12:00 O2 Del Method 08/28/22 12:00 O2 Flow Rate 2 08/28/22 09:21 08/27/22 08/28/22 08/28/22 22:59 06:59 14:59 Intake Total 1999 1258.5 / 1258.5 Output Total 350 / 350 Balance 1999 908.5 / 908.5 Weight last 48 hrs Weight 56.699 kg Physical Exam Narrative: Patient laying in bed. Does wake up to answer questions. Appears drowsy from recent anesthesia. EOMI, Abdomen soft No lower extremity edema bilaterally. Surgical site bandage in place. Urinary Catheter Management: Teresa Latex: Cath Placed During This Visit: yes Reason for Continuing Indwelling Catheter: Perioperative Use in Selected Surgeries Urinary Catheter Date of Insertion: 08/27/22 Urinary Catheter Time of Insertion: 23:04 Data 08/27/22 17:06 08/28/22 01:03 A&P Assessment and plan (1) Fracture of femoral neck, left: Plan Hip fracture Ortho on board. Pt had surgical repair of hip fracture. DVT prophylaxis with SCDs Opioids along bowel regimen COntinue IV fluids Considering young age, patient does not need any cardiac work-up before her surgery TSH 5.69, Check free t4 UA normal. Mag 1.6. order 2g - leukocytosis most likely reactive Full code PT/OT as per ortho Attestations Medical Necessity Statement*: Continue post op care in hospital. PLan for dc next 48 hours Coding Level of Care Code Acute Marketing Trainee for Chg Fwd Diagnoses Fracture of femoral neck, left S72.002A
--- NOTE | 2022-08-28 14:45 | ANE.PACU2 ---
Inpatient post-anesthesia follow up: Airway intact: Yes Vital signs: Temperature 98.8 F Pulse Rate 95 Respiratory Rate 15 Blood Pressure 113/71 Pulse Oximetry 97 Oxygen Delivery Me thod Room Air Oxygen Flow Rate 2 Fraction of Inspir ed Oxygen Hydration adequate: Yes Nausea and vomiting: No Pain level: 3 Mental status: Baseline
[2022-08-28] MEDS: enoxaparin 40 mg/0.4 mL Syringe SUBCUT (17:29)
[2022-08-28] MEDS: iron polysaccharide complex 150 mg Capsule PO (17:29)
[2022-08-28] MEDS: chlorhexidine gluconate 0.12% Btl 473 mL 30 ML MUCOUS MEM ×2 (17:36→20:40)
[2022-08-28] MEDS: ALPRAZolam 0.5 mg Tablet PO (20:41)
--- NOTE | 2022-08-28 20:47 | PC.NURSE ---
Pt c/o pain to left hip at least a 10 . PRN oxy ir administered per orders. Pt is requesting sleeping medication, does not have a current order at this time. Referred to Dr. Alvarez for review.
--- NOTE | 2022-08-28 20:56 | PC.NURSE ---
NO received and noted for Restoril 15mg x 1 dose now. Will pull from omni and administer.
[2022-08-28] MEDS: temazepam 15 mg Capsule PO (21:16)
[2022-08-29] VITALS (21 sets, daily range): BP systolic 102–148; BP diastolic 64–84; PULSE 95–111; RESP 16–20; TEMP 36.6–37.3; O2SAT 96–100
[2022-08-29 04:11] LABS: Basophils % 0.2 %; Eosinophils % 0.2 %; Lymphocytes # 1.8 10^3/uL (0.8-4.8); Lymphocytes % 27.6 %; Mean Corpuscular HGB Conc 33.1 g/dL (30.0-36.0); Mean Corpuscular Volume 111.7 fl (81-99); Monocytes # 0.6 10^3/uL (0.2-0.9); Monocytes % 8.9 %; Neutrophils # 4.15 10^3/uL (1.8-7.7); Neutrophils % 62.6 %; Nucleated Red Blood Cells % 0 %; Platelet Count 162 10^3/cmm (130-400); Red Blood Count 1.54 10^6/uL (4.1-5.3); Red Cell Distribution Width 12.4 % (12.1-15.1); White Blood Count 6.6 10^3/uL (4.0-10.0)
[2022-08-29] MEDS: morphine IR 15 mg Tablet PO ×2 (04:15→19:49)
[2022-08-29 04:31] LABS: Anion Gap 11.9 (5-19); Blood Urea Nitrogen 3 mg/dL (6-20); Carbon Dioxide 22 mmol/L (22-29); Chloride 105 mmol/L (98-107); Glomerular Filtration Rate 133.4 mL/min (90-130); Glucose 104 mg/dL (65-115); Osmolality Calculated 279 mOsm/kg (285-295); Sodium 136 mmol/L (136-145)
[2022-08-29 05:25] LABS: Hematocrit 17.2 % (37.0-47.0); Hemoglobin 5.7 g/dL (11.5-15.3); Potassium 2.9 mmol/L (3.5-5.1)
--- NOTE | 2022-08-29 05:27 | PC.NURSE ---
Referred pt to Dr. Alvarez for review of CL Hemoglobin and K+. NO received and noted to administer 80 meq K+ IV and repeat H&H now. If hemoglobin remains low then transfuse 2u PRBC.
[2022-08-29] MEDS: sodium chloride 0.9% 1,000 ML 75 ML IV ×2 (05:56→18:12)
[2022-08-29] MEDS: lidocaine 1% 5 ML in potassium chloride premix 100 ML 25 ML IV ×2 (05:57→10:10)
[2022-08-29] MEDS: ketorolac 30 mg/mL INJ 15 MG IVP (06:54)
[2022-08-29] MEDS: ceFAZolin 2,000 MG in sodium chloride 0.9% (plus) 50 ML 100 MG IV (06:58)
[2022-08-29 07:01] LABS: Hemoglobin 5.6 g/dL (11.5-15.3)
[2022-08-29 07:02] LABS: Hematocrit 17.2 % (37.0-47.0)
--- NOTE | 2022-08-29 07:09 | PC.NURSE ---
H&H level returned w/result of 5.7. Order 2 u PRBC.
--- NOTE | 2022-08-29 07:10 | PC.NURSE ---
20G IV started to R FA x 1 attempt. Successful, good blood return noted, and flushes w/ease.
--- NOTE | 2022-08-29 08:21 | PC.OT ---
OT EVALUATION HELD THIS A.M. AT [facility] IS 5.6 WILL CHECK AGAIN IN P.M.
[2022-08-29] MEDS: calcium carb-vit d 600mg/400unit 1 Tablet 1 EACH PO ×2 (08:57→17:25)
[2022-08-29] MEDS: oxyCODONE 5 mg IR Tab/Cap PO ×4 (08:58→21:55)
[2022-08-29] MEDS: multivitamin therapeutic Tablet 1 TAB PO (08:58)
[2022-08-29] MEDS: iron polysaccharide complex 150 mg Capsule PO ×2 (08:59→17:25)
[2022-08-29] MEDS: mupirocin oint 22 gm 1 APPLIC NASAL (09:02)
[2022-08-29 11:03] LABS: Reticulocyte % 2.9 % (0.5-2.0)
[2022-08-29 11:08] LABS: Lactate Dehydrogenase 173 U/L (135-214)
[2022-08-29] MEDS: sodium chloride 0.9% 100 mL Bag XX (11:53)
[2022-08-29] MEDS: HYDROmorphone 1 mg/mL INJ 1 mL 0.2 MG IVP (13:02)
--- NOTE | 2022-08-29 14:03 | P.PN_ITS ---
Subjective Subjective: Seen this morning. Patient's hemoglobin dropped to 5.9 and repeat was 5.7. There has been no apparent source of bleeding. No blood in stool, no blood in urine no hematemesis. Surgical site appears clean. Patient states that she has been anemic all her life but has never had hemoglobin that low before. Patient is very concerned and almost alarmed to why her hemoglobin is low. She says her left thigh feels very tight and feels warmer. She is quite concerned about this. Vitals/I&O/Wt Last Vital Signs Temp 98.2 F 08/29/22 13:53 Pulse 99 08/29/22 13:53 Resp 16 08/29/22 13:53 BP 135/81 08/29/22 13:53 Pulse Ox 96 08/29/22 13:53 O2 Del Method 08/29/22 11:11 O2 Flow Rate 2 08/28/22 09:21 08/28/22 08/29/22 08/29/22 22:59 06:59 14:59 Intake Total 760 / 2258.5 50 / 2308.5 985 / 985 Output Total 550 / 900 Balance 210 / 1358.5 50 / 1408.5 985 / 985 Weight last 48 hrs Weight 56.699 kg Physical Exam Narrative: General: Alert oriented x3, patient seen sitting up in bed appearing quite worried. HEENT: Normocephalic, atraumatic, EOMI, breathing normally, no acute respiratory distress. Cardio: Regular rate rhythm, normal S1-S2, no murmurs Respiratory: Good bilateral air entry, no wheezes no rhonchi appreciated GI: Abdomen soft, nontender, nondistended, bowel sounds + Behavior: Appropriate and cooperative Extremities: Left thigh appears swollen and skin is taut, no erythema noted but warmer than right thigh. Femoral pulse, posterior tibial, pedal pulses intact bilateral lower extremities. No evidence of compartment syndrome at this time. Most likely underlying hematoma present. Surgical site covered with Band-Aid. Not taken down at this time. Area is nontender. Urinary Catheter Management: Teresa Latex: Cath Placed During This Visit: yes Reason for Continuing Indwelling Catheter: Perioperative Use in Selected Surgeries Urinary Catheter Date of Insertion: 08/27/22 Urinary Catheter Time of Insertion: 23:04 Data 08/29/22 06:08 08/29/22 03:46 A&P Assessment and plan (1) Fracture of femoral neck, left: Plan Hip fracture Postop blood loss anemia Ortho on board. Pt had surgical repair of hip fracture. DVT prophylaxis with SCDs Opioids along bowel regimen COntinue IV fluids Considering young age, patient does not need any cardiac work-up before her surgery TSH 5.69, Check free t4 UA normal. Leukocytosis is resolved Hemoglobin 5.7 this morning. Repeat 5.9. 2 units packed RBC ordered. We will check blood transfusion CBC Talked with Dr. Gallegos with concerns of patient's surgical site area with potential for any intervention needed. No evidence of compartment syndrome. He will evaluate the patient. Full code PT/OT as per ortho Attestations Medical Necessity Statement*: Continue post op care in hospital. PLan for dc next 48 hours Coding Level of Care Code Acute Glassine Machine Tender for Daniela Gomez Diagnoses Fracture of femoral neck, left S72.002A
[2022-08-29] MEDS: ALPRAZolam 0.5 mg Tablet PO ×2 (14:25→22:59)
[2022-08-29] MEDS: potassium chloride ER 20 mEq Tablet 40 MEQ PO (14:25)
[2022-08-29] MEDS: magnesium sulfate premix 2 GM/50 ML PIGGYBACK IV (14:26)
--- NOTE | 2022-08-29 15:17 | PM.PN ---
Subjective Subjective: Patient seen and evaluated this morning. Patient overall resting comfortably at bedside. She states her pain is much improved since before surgery. She does have some swelling but appears normal postoperative. She is seen evaluated by the internal medicine team I was asked to evaluate patient as she did have a low hemoglobin. Intraoperatively she had no significant blood loss. I suspect some of this is dilutional. Her compartments are soft and compressible her neurovascular examination is normal. No signs of compartment syndrome minimal saturation at the bandages of the incision. Patient states she is already been up and worked with therapy. This point time she will receive some units of blood. We will continue to monitor patient. Likely no therapy today given patient receiving PRBC. No other issues or complaints at this time. Patient reassured. Vitals/I&O/Wt Last Vital Signs Temp 98.5 F 08/29/22 15:13 Pulse 103 H 08/29/22 15:13 Resp 17 08/29/22 15:13 BP 135/82 08/29/22 15:13 Pulse Ox 99 08/29/22 15:13 O2 Del Method 08/29/22 11:11 O2 Flow Rate 2 08/28/22 09:21 08/29/22 08/29/22 08/29/22 06:59 14:59 22:59 Intake Total 50 / 2308.5 1090 / 1090 Output Total 600 / 600 Balance 50 / 1408.5 1090 / 1090 -600 / 490 Weight last 48 hrs Weight 125 lb Physical Exam Narrative: Examination of the left hip demonstrates dressings on in place that are clean dry and intact with minimal saturation. Normal postoperative swelling of the left thigh. Compartments are soft and compressible patient is able to wiggle toes plantarflex and dorsiflex ankle. She is resting comfortably on examination with no discomfort. Sensation intact to light touch distally at the SPN/DPN/tibial/saphenous/sural nerve distribution. Distal pulses palpable. Urinary Catheter Management: Teresa Latex: Cath Placed During This Visit: yes Reason for Continuing Indwelling Catheter: Perioperative Use in Selected Surgeries Urinary Catheter Date of Insertion: 08/27/22 Urinary Catheter Time of Insertion: 23:04 Data 08/29/22 06:08 08/29/22 03:46 Xray Ortho: My impression: Postoperative x-rays demonstrate a stable reduction and fixation left intertrochanteric femur fracture in good alignment. A&P Assessment and plan (1) Fracture, intertrochanteric, left femur: Plan Hemoglobin 5.9?receiving PRBC per primary today Dressings clean dry and intact minimal saturation Compartments soft and compressible Weightbearing as tolerated left lower extremity Change dressings as needed Ice as needed Pain controlled PT/OT Lovenox for DVT prophylaxis Internal medicine as primary We will recheck a.m. labs tomorrow human resources services specialist for discharge planning Orthopedics will continue to follow. Attestations Medical Necessity Statement*: Ongoing care of left hip fracture Coding Level of Care Code Acute Mate Ship for Daniela Gomez Diagnoses Fracture, intertrochanteric, left femur S72.142A Time Spent (min) 30
--- NOTE | 2022-08-29 15:38 | PC.OT ---
OT EVALUATION HELD TODAY DUE TO VERY LOW HGB. OT TO ATTEMPT EVALUATION TOMORROW IF APPROPRIATE.
[2022-08-29 15:44] LABS: Hematocrit 22.4 % (37.0-47.0); Hemoglobin 7.4 g/dL (11.5-15.3)
[2022-08-29 21:13] LABS: Hematocrit 22.5 % (37.0-47.0); Hemoglobin 7.7 g/dL (11.5-15.3)
[2022-08-29] MEDS: trazodone 50 mg Tablet PO (22:59)
[2022-08-30] VITALS (17 sets, daily range): BP systolic 125–157; BP diastolic 75–93; PULSE 95–111; RESP 14–18; TEMP 36.4–37.1; O2SAT 95–100
[2022-08-30] MEDS: HYDROmorphone 1 mg/mL INJ 1 mL 0.2 MG IVP ×3 (02:06→20:34)
[2022-08-30 06:04] LABS: Basophils % 0.1 %; Eosinophils % 0.3 %; Lymphocytes # 1.6 10^3/uL (0.8-4.8); Lymphocytes % 21.3 %; Mean Corpuscular HGB Conc 34.1 g/dL (30.0-36.0); Mean Corpuscular Volume 102.5 fl (81-99); Mean Platelet Volume 9.9 fL (7.4-10.4); Monocytes # 0.6 10^3/uL (0.2-0.9); Monocytes % 8.3 %; Neutrophils # 5.18 10^3/uL (1.8-7.7); Neutrophils % 69.5 %; Nucleated Red Blood Cells % 0 %; Platelet Count 155 10^3/cmm (130-400); White Blood Count 7.5 10^3/uL (4.0-10.0)
[2022-08-30 06:25] LABS: Hematocrit 20.5 % (37.0-47.0)
[2022-08-30 06:34] LABS: Blood Urea Nitrogen 2 mg/dL (6-20); Calcium 7.8 mg/dL (8.5-10.5); Carbon Dioxide 23 mmol/L (22-29); Chloride 106 mmol/L (98-107); Glomerular Filtration Rate 240.6 mL/min (90-130); Glucose 98 mg/dL (65-115); Osmolality Calculated 280 mOsm/kg (285-295); Sodium 137 mmol/L (136-145)
[2022-08-30] MEDS: sennosides-docusate Tablet 2 TAB PO ×2 (08:25→17:11)
[2022-08-30] MEDS: calcium carb-vit d 600mg/400unit 1 Tablet 1 EACH PO ×2 (08:26→17:11)
[2022-08-30] MEDS: potassium chloride ER 20 mEq Tablet 40 MEQ PO (08:26)
[2022-08-30] MEDS: multivitamin therapeutic Tablet 1 TAB PO (08:26)
[2022-08-30] MEDS: iron polysaccharide complex 150 mg Capsule PO ×2 (08:26→17:11)
[2022-08-30] MEDS: sodium chloride 0.9% 1,000 ML 75 ML IV (08:28)
[2022-08-30] MEDS: oxyCODONE 5 mg IR Tab/Cap PO ×3 (09:07→22:01)
[2022-08-30] MEDS: sodium chloride 0.9% (100 ml) 100 ML 10 ML (10:01)
--- NOTE | 2022-08-30 10:02 | PM.PN ---
Subjective Subjective: Patient seen evaluated this morning. Patient doing well. She sitting up at bedside. Hemoglobin 7 this morning. She is receiving additional PRBC per the primary team. At this point time would recommend she continue with holding DVT prophylaxis. She did have some blood clots in her bedpan this morning. This is being worked up by the primary team. Overall she states her left leg continues to improve each day. She has gotten up and worked with therapy. She still has some pain and discomfort to the left hip. Vitals/I&O/Wt Last Vital Signs Temp 98.2 F 08/30/22 09:54 Pulse 104 H 08/30/22 09:54 Resp 18 08/30/22 09:54 BP 151/85 08/30/22 09:54 Pulse Ox 97 08/30/22 09:54 O2 Del Method 08/30/22 08:00 O2 Flow Rate 2 08/28/22 09:21 08/29/22 08/30/22 08/30/22 22:59 06:59 14:59 Intake Total 1050 / 2140 0 / 2140 1000 / 1000 Output Total 600 / 600 0 / 600 Balance 450 / 1540 0 / 1540 1000 / 1000 Physical Exam Narrative: Examination of the left hip demonstrates dressings on in place that are clean dry and intact with minimal saturation.? Normal postoperative swelling of the left thigh.? Compartments are soft and compressible patient is able to wiggle toes plantarflex and dorsiflex ankle.? She is resting comfortably on examination with no discomfort.? Sensation intact to light touch distally at the SPN/DPN/tibial/saphenous/sural nerve distribution.? Distal pulses palpable. Urinary Catheter Management: Teresa Latex: Cath Placed During This Visit: yes, but has since been removed by the nurse Reason for Continuing Indwelling Catheter: Decision to DC Catheter Urinary Catheter Date of Insertion: 08/27/22 Urinary Catheter Time of Insertion: 23:04 Date Urinary Catheter Removed: 08/29/22 Time Urinary Catheter Discontinued: 18:10 Data 08/30/22 04:48 08/30/22 04:48 A&P Assessment and plan (1) Fracture, intertrochanteric, left femur: Plan 7.0 hemoglobin this morning receiving more units PRBC. Bedpan blood clots noted and being worked up by primary team for vaginal spotting PT/OT Weightbearing as tolerated left lower extremity SCDs for DVT prophylaxis Change dressing as needed Ice as needed Pain control Orthopedics will continue to follow Attestations Medical Necessity Statement*: Ongoing care for intertrochanteric left femur fracture Coding Level of Care Code Acute Supply Chain Business Analyst for Daniela Fwd Diagnoses Fracture, intertrochanteric, left femur S72.142A Time Spent (min) 25
--- NOTE | 2022-08-30 10:44 | PC.OT ---
OT Tammie Held - Evaluation held this AM secondary to low HGB, will reassess this afternoon.
--- NOTE | 2022-08-30 13:19 | P.PN_ITS ---
Subjective Subjective: Patient seen this morning. She has been having some vaginal spotting. She states that she has it at home 2. Her last Pap smear was unknown time ago. She says she does not really follow with somebody for gynecological care. She also complains of early satiety. She says she has loss of appetite at times. Hemoglobin 7.0 this morning. RDW 17. Placed on iron. Potassium 3.0. She was able to get out of the bed walk to the bathroom and back. She work with physical therapy. She is pivoting on the surgical leg and putting her weight on the opposite leg. Vitals/I&O/Wt Last Vital Signs Temp 98.4 F 08/30/22 12:09 Pulse 100 08/30/22 12:09 Resp 18 08/30/22 12:09 BP 148/90 08/30/22 12:09 Pulse Ox 99 08/30/22 12:09 O2 Del Method 08/30/22 11:48 O2 Flow Rate 2 08/28/22 09:21 08/29/22 08/30/22 08/30/22 22:59 06:59 14:59 Intake Total 1050 / 2140 0 / 2140 1470 / 1470 Output Total 600 / 600 0 / 600 Balance 450 / 1540 0 / 1540 1470 / 1470 Physical Exam Narrative: General: Alert oriented x3, patient seen sitting up in recliner appearing better. HEENT: Normocephalic, atraumatic, EOMI, breathing normally, no acute respiratory distress. Cardio: Regular rate rhythm, normal S1-S2, no murmurs Respiratory: Good bilateral air entry, no wheezes no rhonchi appreciated GI: Abdomen soft, nontender, nondistended, bowel sounds + Behavior: Appropriate and cooperative Extremities: Lower extremity pulses intact, surgical bandage intact. Urinary Catheter Management: Teresa Latex: Cath Placed During This Visit: yes, but has since been removed by the nurse Reason for Continuing Indwelling Catheter: Decision to DC Catheter Urinary Catheter Date of Insertion: 08/27/22 Urinary Catheter Time of Insertion: 23:04 Date Urinary Catheter Removed: 08/29/22 Time Urinary Catheter Discontinued: 18:10 Data 08/30/22 04:48 08/30/22 04:48 A&P Assessment and plan (1) Fracture of femoral neck, left: (2) Postoperative anemia due to acute blood loss: (3) Iron deficiency anemia: (4) Vaginal spotting: Plan Hip fracture Postop blood loss anemia Vaginal spotting Ortho on board. Pt had surgical repair of hip fracture. DVT prophylaxis with SCDs Opioids along bowel regimen COntinue IV fluids Considering young age, patient does not need any cardiac work-up before her surgery TSH 5.69, Check free t4 UA normal. Leukocytosis is resolved Hemoglobin 7.0. Patient is status post 2 units of RBCs from yesterday. Ordered 2 more units today. She is having vaginal spotting. She has not had a Pap smear in years. I will check pelvic ultrasound and abdominal ultrasound as she is also reporting early satiety. She may follow-up with the results of the studies outpatient with her primary care doctor. I will also give her a referral to BUILDING CONSTRUCTION CONTRACTOR at discharge. Check iron panel, TIBC, ferritin Full code PT/OT as per ortho Attestations Medical Necessity Statement*: Ongoing care of left hip fracture Coding Level of Care Code Acute Drill Grinder for g Fwd Diagnoses Fracture of femoral neck, left S72.002A Postoperative anemia due to acute blood loss D62 Iron deficiency anemia D50.9 Vaginal spotting N93.9
--- NOTE | 2022-08-30 13:23 | US_ITS ---
WS: [id number] TRANSABDOMINAL PELVIC ULTRASOUND HISTORY: vaginal spotting COMPARISON: None available. Uterus: 6.7 cm x 4.5 cm x 4.0 cm. Anteverted uterus is normal size. No fibroid or mass. Endometrium: 0.2 cm. Normal homogeneity and size. Right ovary: 2.9 cm x 2.0 cm x 2.9 cm; no solid or cystic mass. Normal vascularity. Left ovary: 2.9 cm x 2.3 cm x 1.6 cm; no solid or cystic mass. Normal vascularity. No free fluid in the cul-de-sac. US/US pelvic complete* [id number] IMPRESSION: Unremarkable transabdominal pelvic ultrasound. No endometrial abnormality. Fernie mmend follow-up transvaginal imaging of the endometrium is vaginal bleeding per sists.
--- NOTE | 2022-08-30 13:23 | US_ITS ---
WS: [id number] Complete ABDOMINAL ULTRASOUND HISTORY: early satiety COMPARISON: None available. Liver: 16.5 cm in length. Liver is top normal size. No mass or bile duct dilatation. Portal Vein: Normal hepatopetal flow with monophasic waveform. Gallbladder: Normally distended with no gallstones, wall thickening or pericholecystic fluid. Pancreas: Completely obscured by bowel gas and shadowing. CBD: 0.2 cm. Right kidney: 9.8 cm x 6.0 cm x 5.3 cm. No mass, cortical thickening or hydronephrosis. Left kidney: 9.1 cm x 4.9 cm x 5.5 cm. No mass, cortical thickening or hydronephrosis. Spleen: Normal size and echogenicity. Abdominal aorta and IVC are within normal limits. No ascites. US/US abdomen complete* [id number] IMPRESSION: 1. Normal gallbladder. 2. No renal obstruction. 3. Nonvisualization of the pancreas.
[2022-08-30 14:23] LABS: Basophils % 0.3 %; Eosinophils % 0.1 %; Hemoglobin 9.1 g/dL (11.5-15.3); Lymphocytes # 1.4 10^3/uL (0.8-4.8); Lymphocytes % 14.2 %; Mean Corpuscular HGB Conc 33.6 g/dL (30.0-36.0); Mean Corpuscular Hemoglobin 33.6 pg (28.0-34.0); Mean Platelet Volume 9.3 fL (7.4-10.4); Monocytes # 0.8 10^3/uL (0.2-0.9); Monocytes % 8.2 %; Neutrophils # 7.34 10^3/uL (1.8-7.7); Neutrophils % 76.4 %; Nucleated Red Blood Cells % 0 %; Platelet Count 161 10^3/cmm (130-400); Red Blood Count 2.71 10^6/uL (4.1-5.3); Red Cell Distribution Width 17.1 % (12.1-15.1); White Blood Count 9.6 10^3/uL (4.0-10.0)
--- NOTE | 2022-08-30 14:29 | PC.OT ---
OT Eval Hold - Patient's hgb remains low on this day (7) hold until hgb can be brought up above 8.
[2022-08-30 14:31] LABS: Hematocrit 27.1 % (37.0-47.0)
[2022-08-30 15:54] LABS: Ferritin 287 ng/mL (15-150); Iron 64 ug/dL (37-145); Percent Saturation 45.3 % (20-50); Total Iron Binding Capacity 141 mcg/dl; Unsaturated Iron Binding 77 ug/dL (112-347)
[2022-08-30] MEDS: morphine IR 15 mg Tablet PO (16:00)
[2022-08-30] MEDS: ALPRAZolam 0.5 mg Tablet PO (22:01)
[2022-08-31] VITALS (9 sets, daily range): BP systolic 124–157; BP diastolic 65–82; PULSE 88–101; RESP 14–18; TEMP 36.6–37.1; O2SAT 96–99
[2022-08-31] MEDS: oxyCODONE 5 mg IR Tab/Cap PO ×3 (02:11→12:52)
[2022-08-31] MEDS: sodium chloride 0.9% 1,000 ML 75 ML IV (02:12)
[2022-08-31 04:07] LABS: Basophils % 0.1 %; Eosinophils # 0.1 10^3/uL (0.0-0.8); Eosinophils % 0.9 %; Hematocrit 24.3 % (37.0-47.0); Hemoglobin 8.4 g/dL (11.5-15.3); Lymphocytes # 1.9 10^3/uL (0.8-4.8); Lymphocytes % 27.4 %; Mean Corpuscular HGB Conc 34.6 g/dL (30.0-36.0); Mean Corpuscular Hemoglobin 34.4 pg (28.0-34.0); Mean Corpuscular Volume 99.6 fl (81-99); Mean Platelet Volume 9.6 fL (7.4-10.4); Monocytes # 0.6 10^3/uL (0.2-0.9); Monocytes % 8.8 %; Neutrophils # 4.25 10^3/uL (1.8-7.7); Neutrophils % 62.4 %; Nucleated Red Blood Cells % 0 %; Platelet Count 177 10^3/cmm (130-400); Red Blood Count 2.44 10^6/uL (4.1-5.3); Red Cell Distribution Width 17.1 % (12.1-15.1); White Blood Count 6.8 10^3/uL (4.0-10.0)
[2022-08-31 04:34] LABS: Anion Gap 10.5 (5-19); Blood Urea Nitrogen 2 mg/dL (6-20); Calcium 8.3 mg/dL (8.5-10.5); Carbon Dioxide 25 mmol/L (22-29); Chloride 105 mmol/L (98-107); Glomerular Filtration Rate 240.6 mL/min (90-130); Glucose 95 mg/dL (65-115); Osmolality Calculated 280 mOsm/kg (285-295); Potassium 3.5 mmol/L (3.5-5.1); Sodium 137 mmol/L (136-145)
[2022-08-31] MEDS: morphine IR 15 mg Tablet PO (06:32)
--- NOTE | 2022-08-31 08:31 | P.PN_ITS ---
Subjective Subjective: Patient seen and examined this morning sitting up and eating breakfast. She states she is been able to lift her left lower extremity at the hip with more comfort today. She has been up. She is worked with therapy. Pain controlled. No other complaints at this time appears vaginal spotting work -up of ultrasounds demonstrate no significant findings or concerns for abdominal bleeding. Vitals/I&O/Wt Last Vital Signs Temp 97.8 F 08/31/22 07:54 Pulse 101 H 08/31/22 08:00 Resp 18 08/31/22 08:00 BP 124/69 08/31/22 07:54 Pulse Ox 99 08/31/22 08:00 O2 Del Method 08/31/22 08:00 O2 Flow Rate 2 08/28/22 09:21 08/30/22 08/31/22 08/31/22 22:59 06:59 14:59 Intake Total 795 / 2265 428.75 / 2693.75 Balance 795 / 2265 428.75 / 2693.75 Physical Exam Narrative: Examination of the left hip demonstrates dressings on in place that are clean dry and intact with minimal saturation.? Normal postoperative swelling of the left thigh.? Compartments are soft and compressible patient is able to wiggle toes plantarflex and dorsiflex ankle.? She is resting comfortably on examination with no discomfort.? Sensation intact to light touch distally at the SPN/DPN/tibial/saphenous/sural nerve distribution.? Distal pulses palpable. No change on exam. Patient sitting up comfortably eating breakfast. Urinary Catheter Management: Teresa Latex: Cath Placed During This Visit: yes, but has since been removed by the nurse Reason for Continuing Indwelling Catheter: Decision to DC Catheter Urinary Catheter Date of Insertion: 08/27/22 Urinary Catheter Time of Insertion: 23:04 Date Urinary Catheter Removed: 08/29/22 Time Urinary Catheter Discontinued: 18:10 Data 08/31/22 03:38 08/31/22 03:38 A&P Assessment and plan (1) Fracture, intertrochanteric, left femur: (2) Postoperative anemia due to acute blood loss: Plan 8.4 hemoglobin?patient asymptomatic Vaginal spotting work-up negative for abdominal bleeding. PT/OT Weightbearing as tolerated left lower extremity SCDs for DVT prophylaxis Change dressing as needed Ice as needed Pain control Patient stable for discharge from orthopedic standpoint. Orthopedic surgery team will sign off patient at this time and follow peripherally. Appreciate allow me to partake in the care of this patient. She should follow-up with me in the office in 2 weeks. Discharge instruction in chart. Attestations Medical Necessity Statement*: Ongoing care of left intertrochanteric femur fracture Coding Level of Care Code Acute Property Insurance Agent for Daniela Fwd Diagnoses Fracture, intertrochanteric, left femur S72.142A Postoperative anemia due to acute blood loss D62 Time Spent (min) 25
[2022-08-31] MEDS: iron polysaccharide complex 150 mg Capsule PO (09:02)
[2022-08-31] MEDS: calcium carb-vit d 600mg/400unit 1 Tablet 1 EACH PO (09:02)
[2022-08-31] MEDS: multivitamin therapeutic Tablet 1 TAB PO (09:02)
[2022-08-31] MEDS: sennosides-docusate Tablet 2 TAB PO (09:02)
--- NOTE | 2022-08-31 10:13 | PM.DCS ---
Discharge Providers Date of Admission: 08/27/22 20:54 Date of Discharge: August 31, 2022 Attending Provider at Admission: Agnes Monroy MD Attending Provider at Discharge: Agnes Monroy MD Primary Care Provider: Rand Moy Diagnoses at Discharge Discharge Diagnosis (1) Fracture, intertrochanteric, left femur: Status: Acute (2) Postoperative anemia due to acute blood loss: Status: Acute Reason for Visit Reason for Visit: LEG PAIN Brief History: as per dr. richard Madeline Chavez is a 47 year old female who presents today after sustaining a fall on concrete ground at a gas station.? Patient is stating that she does not have any significant medical history other than sciatica, IBS, she does not have any history of diabetes hypertension CHF or diabetes, today she tripped over because of her untied shoelaces at the gas station and sustained a fall.? In the ER she has been diagnosed with left femoral neck fracture Dr. Gallegos has been consulted.? She is going for surgery in the morning.? She is hypertensive at the time of evaluation, left leg is shortened and rotated outwards I have requested Teresa catheter placement.? She is very anxious at this point Hospital Course Hospital Course Patient seen for hip fracture. She tripped on her shoelaces and fell. Patient also positive for meth at admission. Ortho on board. She had surgical repair of hip. Patient's course was complicated by postoperative anemia due to blood loss. Hemoglobin dropped to 5.7. He received 3 units of blood transfusions total during hospital stay. She also had reports of vaginal spotting and has not had a Pap smear in years. Pelvic ultrasound was checked which was essentially normal and abdominal ultrasound was also done as she was reporting early satiety. He also stated she had chronic anemia. Iron profile has been checked for which she will follow-up with her primary care doctor. Abdominal ultrasound was also unremarkable. Patient will be given referral to [facility] at discharge. Patient ideally should be on DVT prophylaxis for 30 to 35 days however due to anemia and blood loss after surgery orthopedic surgery and I have decided to hold DVT prophylaxis until she is seen by primary and has had a repeat CBC done as an outpatient. At that point the primary care doctor may initiate Eliquis 2.5 twice daily for 30 days. Patient will be given pain medication at discharge. She is to follow-up with orthopedic surgery within 2 weeks. Greater than 30 minutes were spent in the room answering patient's concerns. She was quite worried about being not strong enough however was set up with a walker. Her insurance did not authorize her to have outpatient physical therapy. Patient states she has a brother her mom and a son at home who may be able to help her. Patient discharged home in stable condition with walker. She was asked to watch out for any blood loss and recheck her labs as directed. Physical Exam Narrative: General: Alert oriented x3, patient seen sitting up in recliner appearing better. HEENT: Normocephalic, atraumatic, EOMI, breathing normally, no acute respiratory distress. Cardio: Regular rate rhythm, normal S1-S2, no murmurs Respiratory: Good bilateral air entry, no wheezes no rhonchi appreciated GI: Abdomen soft, nontender, nondistended, bowel sounds + Behavior: Appropriate and cooperative Extremities: Lower extremity pulses intact, surgical bandage intact. Urinary Catheter Management: Teresa Latex: Cath Placed During This Visit: yes, but has since been removed by the nurse Reason for Continuing Indwelling Catheter: Decision to DC Catheter Urinary Catheter Date of Insertion: 08/27/22 Urinary Catheter Time of Insertion: 23:04 Date Urinary Catheter Removed: 08/29/22 Time Urinary Catheter Discontinued: 18:10 Discharge Data Studies Completed and Pending Completed Studies During Hospitalization Category Date Time Status XR chest 1V [id number] Routine Exams 08/27/22 Completed XR femur LT min 2V* [id number] Stat Exams 08/27/22 17:13 Completed XR hip LT 2-3V wo/w pel* [id number] Routine Exams 08/28/22 Completed XR hip LT 2-3V wo/w pel* [id number] Routine Exams 08/28/22 08:27 Completed XR hip LT 2-3V wo/w pel* [id number] Stat Exams 08/27/22 16:36 Completed XR knee LT 3V* [id number] Stat Exams 08/27/22 17:13 Completed XR pelvis 1-2V* [id number] Stat Exams 08/27/22 17:13 Completed Pathology: Surgical [PTH] Routine Pth 08/28/22 08:16 Completed US abdomen complete* [id number] Routine Ultrasound 08/30/22 13:23 Completed US pelvic complete* [id number] Routine Ultrasound 08/30/22 13:23 Completed Pending at discharge Category Date Time Status CBC Auto Diff [Complete Blood Count w/Auto] Q12H Lab 08/31/22 14:08 Ordered Radiology Impressions Femur X-Ray 08/27/22 17:13 IMPRESSION: 1. Left hip acute surgical fracture. 2. The mid to distal left femur shows no acute fracture. Knee X-Ray 08/27/22 17:13 IMPRESSION: No acute findings. Pelvis X-Ray 08/27/22 17:13 IMPRESSION: Left hip acute surgical fracture. Hip/Pelvis X-Ray 08/28/22 08:27 IMPRESSION: 1. Internal orthopedic fixation involving an intertrochanteric fracture of the left hip. Alignment is satisfactory for healing. Abdomen Ultrasound 08/30/22 13:23 IMPRESSION: 1. Normal gallbladder. 2. No renal obstruction. 3. Nonvisualization of the pancreas. Pelvis Ultrasound 08/30/22 13:23 IMPRESSION: Unremarkable transabdominal pelvic ultrasound. No endometrial abnormality. Recommend follow-up transvaginal imaging of the endometrium is vaginal bleeding persists. Laboratory Results WBC 6.8 10^3/uL (4.0-10.0) 08/31/22 03:38 RBC 2.44 10^6/uL (4.1-5.3) L 08/31/22 03:38 Hgb 8.4 g/dL (11.5-15.3) L 08/31/22 03:38 Hct 24.3 % (37.0-47.0) L 08/31/22 03:38 MCV 99.6 fl (81-99) H 08/31/22 03:38 MCH 34.4 pg (28.0-34.0) H 08/31/22 03:38 MCHC 34.6 g/dL (30.0-36.0) 08/31/22 03:38 RDW 17.1 % (12.1-15.1) H 08/31/22 03:38 Plt Count 177 10^3/cmm (130-400) 08/31/22 03:38 MPV 9.6 fL (7.4-10.4) 08/31/22 03:38 Neut % (Auto) 62.4 % 08/31/22 03:38 Lymph % (Auto) 27.4 % 08/31/22 03:38 [place] % (Auto) 8.8 % 08/31/22 03:38 Eos % (Auto) 0.9 % 08/31/22 03:38 Baso % (Auto) 0.1 % 08/31/22 03:38 Reticulocyte % (Auto) 2.9 % (0.5-2.0) H 08/29/22 03:46 Neut # (Auto) 4.25 10^3/uL (1.8-7.7) 08/31/22 03:38 Lymph # (Auto) 1.9 10^3/uL (0.8-4.8) 08/31/22 03:38 [place] # (Auto) 0.6 10^3/uL (0.2-0.9) 08/31/22 03:38 Eos # (Auto) 0.1 10^3/uL (0.0-0.8) 08/31/22 03:38 Baso # (Auto) 0.0 10^3/uL (0.0-0.1) 08/31/22 03:38 Nucleated RBC % (auto) 0 % 08/31/22 03:38 Nucleated RBCs # 0.0 /100WBC 08/31/22 03:38 Haptoglobin 173.0 mg/L (30-200) 08/29/22 03:46 Sodium 137 mmol/L (136-145) 08/31/22 03:38 Potassium 3.5 mmol/L (3.5-5.1) 08/31/22 03:38 Chloride 105 mmol/L (98-107) 08/31/22 03:38 Carbon Dioxide 25 mmol/L (22-29) 08/31/22 03:38 Anion Gap 10.5 (5-19) 08/31/22 03:38 BUN 2 mg/dL (6-20) L 08/31/22 03:38 Creatinine 0.3 mg/dL (0.5-0.9) L 08/31/22 03:38 GFR Calculation 240.6 mL/min (90-130) H 08/31/22 03:38 Glucose 95 mg/dL (65-115) 08/31/22 03:38 Calculated Osmolality 280 mOsm/kg (285-295) L 08/31/22 03:38 Calcium 8.3 mg/dL (8.5-10.5) L 08/31/22 03:38 Phosphorus 3.0 mg/dL (2.5-4.5) 08/28/22 01:03 Magnesium 1.6 mg/dL (1.7-2.3) L 08/28/22 01:03 Iron 64 ug/dL (37-145) 08/30/22 15:00 TIBC 141 mcg/dl 08/30/22 15:00 % Saturation 45.3 % (20-50) 08/30/22 15:00 Unsat Iron Binding 77 ug/dL (112-347) L 08/30/22 15:00 Ferritin 287 ng/mL (15-150) H 08/30/22 15:00 Total Bilirubin 0.4 mg/dL (0.15-1.2) 08/27/22 17:06 AST 41 U/L (0-32) H 08/27/22 17:06 ALT 21 U/L (0-33) 08/27/22 17:06 Alkaline Phosphatase 110 U/L (35-105) H 08/27/22 17:06 Lactate Dehydrogenase 173 U/L (135-214) 08/29/22 03:46 Total Protein 7.3 g/dL (6.6-8.7) 08/27/22 17:06 Albumin 4.1 g/dL (3.5-5.2) 08/27/22 17:06 Globulin 3.2 g/dL (1.3-4.6) 08/27/22 17:06 Procalcitonin 0.03 ng/mL (0-0.5) 08/27/22 18:27 TSH 5.69 uIU/mL (0.27-4.20) H 08/27/22 18:27 Urine Color Yellow (Yellow) 08/27/22 23:17 Urine Appearance Clear (CLEAR) 08/27/22 23:17 Urine pH 5 (5-7) 08/27/22 23:17 Ur Specific [place] 1.020 (1.005-1.030) 08/27/22 23:17 Urine Protein Neg (Negative) 08/27/22 23:17 Urine Glucose (UA) Norm (Normal) 08/27/22 23:17 Urine Ketones Negative (Negative) 08/27/22 23:17 Urine Blood Neg (Negative) 08/27/22 23:17 Urine Nitrate Negative (Negative) 12/19/22 23:17 Urine Bilirubin Neg (Negative) 08/27/22 23:17 Urine Urobilinogen Norm mg/dL (Negative) 08/27/22 23:17 Ur Leukocyte Esterase Negative (Negative) 08/27/22 23:17 Urine HCG, Qual Negative (Negative) 08/28/22 06:28 Blood Type O Positive 08/28/22 03:00 Rho(D) Type Positive 08/28/22 03:00 Antibody Screen Negative 08/28/22 03:00 Crossmatch See Detail 08/28/22 03:00 Vitals Last Vital Signs Temp 97.8 F 08/31/22 07:54 Pulse 101 H 08/31/22 08:00 Resp 18 08/31/22 09:02 BP 124/69 08/31/22 07:54 Pulse Ox 99 08/31/22 08:00 O2 Del Method 08/31/22 08:00 O2 Flow Rate 2 08/28/22 09:21 Discharge Plan Discharge Patient Disposition: Home Condition: Stable Prescriptions: New hydrocodone-acetaminophen 10-325 mg tablet 1 tab PO Q6H PRN (Reason: pain) 7 Days Qty: 28 0RF ondansetron 4 mg tablet,disintegrating 4 mg PO DAILY 5 Days Qty: 5 0RF calcium carbonate-vitamin D3 600 mg-10 mcg (400 unit) Tablet 1 ea PO BID 30 Days Qty: 60 0RF Colace 100 mg capsule 100 mg PO DAILY PRN (Reason: constipation) 10 Days Qty: 10 0RF Continued dicyclomine 20 mg tablet 20 mg PO DAILY PRN (Reason: IBS Symptoms) gabapentin 300 mg capsule 300 mg PO DAILY PRN (Reason: Pain) Discharge Orders: Discharge Order (Routine); Ordered 08/31/22 Ordered By: Agnes Monroy Other Ambulatory Orders: Complete Blood Count w/Auto (Routine) Timeframe: 3 Days Location: Determined by Patient Ordered By: Agnes Monroy Complete Blood Count w/Auto (Routine) Timeframe: 1 Week Location: Determined by Patient Ordered By: Agnes Monroy DME: Nae[facility] (Order) Location: None Selected Ordered By: Agnes Monroy Referrals: George Santizo [Referring] - 4-7 days (We were unable to make your follow up appointments due to the holidays. Please call Saturday to make your follow up appoinment kemi a week. ) Yoselin Quarles MD [Physician] - 2 weeks (We were unable to make your follow up appointments due to the holidays. Please call Saturday to make your appoinment with Dr. Quarles to follow up on your vaginal spotting. ) Kadeem Gallegos DO [Physician] - 2 weeks (We were unable to make your follow up appointments due to the holidays. Please call Saturday to make your follow up appoinment in two weeks. ) Discharge Diet: Advance as tolerated Discharge Activity: Increase activity as tolerated Patient Instructions: Hydrocodone/Acetaminophen (By mouth), Laxative, Stimulant (By mouth), Ondansetron (By mouth), ORIF of Hip Fracture (DC), Opioid Safety, Post Anesthesia Care Activity Restrictions/Additional Instructions: Orthopedic discharge instructions: Patient may weight-bear as tolerated to the left lower extremity Recommended knee and ankle range of motion Ice as needed Take [place] pain medication as prescribed Take antinausea medication as needed Supplement with Citracal vitamin D for bone healing Take Colace for constipation if needed We will take Eliquis 2.5 mg twice daily for blood clot prevention Follow-up with Dr. Gallegos in the office in 2 weeks Keep incision clean dry and intact Contact the office for any questions or concerns Please follow up with primary care doctor after discharge. If your hemoglobin stays stable (blood count), your PCP can assess and have you start on DVT prophylaxis dose medication. We are not giving you the blood thinner at discharge due to your low hemoglobin. Please have your labs checked as directed and follow with primary care doctor. Discharge Attestations Time Spent in Discharge Care*: greater than 30 min Quality Metrics Clinical Quality Measures [ No reported AMI, CVA or VTE this stay] Coding Level of Care Code Acute Chg FW DC note Diagnoses Fracture, intertrochanteric, left femur S72.142A Postoperative anemia due to acute blood loss D62
== END 2022-08-31 13:32 | disposition home or self-care (01) | DRG 481 ==
LOC: ER 17:53 → MEDSURG 20:54
PROVIDERS: Anesthesiology; Internal Medicine; Physician Assistant; Student in an Organized Health Care Education/Training Program; Admitting Provider Internal Medicine; Emergency Provider Emergency Medicine; PCP Nurse Practitioner Family; Visit Provider Internal Medicine
PROC: 0QS706Z Reposition Left Upper Femur with Intramedullary Internal Fixation Device, Open Approach (ICD-10-PCS; CPT 27245; principal; 2022-08-28 07:00)
DX: S72.142A Displaced intertrochanteric fracture of left femur, initial encounter for closed fracture (principal); D62 Acute posthemorrhagic anemia; W01.0XXA Fall on same level from slipping, tripping and stumbling without subsequent striking against object, initial encounter; K58.9 Irritable bowel syndrome, unspecified; I10 Essential (primary) hypertension; F15.90 Other stimulant use, unspecified, uncomplicated; R68.81 Early satiety; N93.9 Abnormal uterine and vaginal bleeding, unspecified; M54.30 Sciatica, unspecified side; Z87.891 Personal history of nicotine dependence
CPT/HCPCS: 36415; 36430; 51702; 71045; 72170; 73502; 73552; 73562; 76000; 76700; 76856; 80048; 80053; 81003; 81025; 82728; 83010; 83540; 83550; 83615; 83735; 84100; 84145; 84443; 84703; 85014; 85018; 85025; 85045; 86850; 86900; 86920; 88307; 88311; 93005; 96361; 96372; 96374; 96375; 97110; 97116; 97161; 97166; 97530; 99285; C1713; C1776; J0690; J1100; J1170; J1650; J1885; J2250; J2270; J2405; J2704; J3010; J3475; J3480; J7030; P9016

== ENCOUNTER → 2022-09-13 13:39 | Outpatient (BNVA) | payer BC, MEDICAID, SELFPAY | PROVIDERS: PCP Nurse Practitioner Family; Visit Provider Student in an Organized Health Care Education/Training Program | DX: S72.142A Displaced intertrochanteric fracture of left femur, initial encounter for closed fracture (principal); X58.XXXA Exposure to other specified factors, initial encounter | CPT/HCPCS: 73502 ==

== ENCOUNTER → 2022-12-18 14:17 | Outpatient (BNVA) | payer BC, MEDICAID, SELFPAY | PROVIDERS: PCP Nurse Practitioner Family; Referring Provider Family Medicine; Visit Provider Physician Assistant | DX: M43.17 Spondylolisthesis, lumbosacral region (principal) | CPT/HCPCS: 72110 ==

== ENCOUNTER → 2023-05-23 13:24 | Outpatient (BNVA) | payer BC, MEDICAID, SELFPAY | PROVIDERS: PCP Nurse Practitioner Family; Visit Provider Student in an Organized Health Care Education/Training Program | DX: M70.62 Trochanteric bursitis, left hip | CPT/HCPCS: 73502 ==

== ENCOUNTER 2023-10-11 15:55 | Outpatient (CLI) | payer BC, MEDICAID, SELFPAY ==
--- NOTE | 2023-10-11 16:05 | CTR_ITS ---
PROCEDURE INFORMATION: Exam: CT Left Lower Extremity Without Contrast, Hip Exam date and time: 10/11/2023 4:09 PM Age: 48 years old Clinical indication: Pain; Prior surgery; Surgery date: 1-6 months; Surgery type: Left hip 08/28/22; Additional info: Confirm of union TECHNIQUE: Imaging protocol: CT of the left lower extremity without contrast was performed. Exam focused on the hip. Radiation optimization: All CT scans at this facility use at least one of these dose optimization techniques: automated exposure control; mA and/or kV adjustment per patient size (includes targeted exams where dose is matched to clinical indication); or iterative reconstruction. COMPARISON: CR XR hip LT 2-3V wo/w pel* [id number] 05/23/2023 1:53 PM RADIATION DOSE METRICS: Total DLP (mGy-cm): 318.87 FINDINGS: Bones/joints: Metallic hardware transfixes old, completely healed intertrochanteric fractures of the left femur. The bony structures demonstrate diffuse osteopenia. Soft tissues: Normal. CT/CT hip LT wo con* [id number] IMPRESSION: Completely healed intertrochanteric fractures of the left femur
== END 2023-10-11 15:56 | disposition home or self-care (01) ==
LOC: RAD 15:55
PROVIDERS: PCP Nurse Practitioner Family; Visit Provider Physician Assistant
DX: M25.552 Pain in left hip (principal); Z87.81 Personal history of (healed) traumatic fracture; Z98.890 Other specified postprocedural states
CPT/HCPCS: 73700

== ENCOUNTER → 2023-10-18 13:41 | Outpatient (BNVA) | payer BC, MEDICAID, SELFPAY | PROVIDERS: PCP Nurse Practitioner Family; Visit Provider Orthopaedic Surgery | DX: M43.17 Spondylolisthesis, lumbosacral region; M54.16 Radiculopathy, lumbar region | CPT/HCPCS: 72110 ==

== ENCOUNTER 2023-11-26 13:31 | Outpatient (CLI) | payer BC, MEDICAID, SELFPAY ==
--- NOTE | 2023-11-26 13:45 | MR_ITS ---
WS: [id number] MRI LUMBAR SPINE NONCONTRAST HISTORY: lumbar pain COMPARISON: None available. TECHNIQUE: Sagittal and axial multisequence imaging is submitted. C3 remote anterior wedging. L5 anterolisthesis by 5 mm. Moderate disc space narrowing at L5-S1. Bilateral pars defects at L5. The remaining disc spaces and vertebral bodies are normal. Conus terminates normally at L1. L1-L2: Normal. L2-L3: Mild ligamentum flavum and facet arthritis. No stenosis. L3-L4: Mild annular disc bulging with mild ligamentum flavum and facet arthritis. No stenosis. L4-L5: Mild disc bulging with ligamentum flavum and facet arthritis. L5-S1: Diffuse annular disc bulging. Severe bilateral facet joint arthritis. LEFT foraminal disc prot rusion. Mild central stenosis with disc contacting the S1 nerve roots. Severe bilateral foraminal juan nosis, LEFT greater than RIGHT. IMPRESSION: 1. Grade 1 spondylolisthesis of L5 with bilateral spondylolysis. 2. Severe bilateral foraminal stenosis at L5-S1, LEFT greater than RIGHT. Additional disc protrusion in the LEFT foramen. 3. Mild central and subarticular recess stenosis at L5-S1 with disc contacting the S1 nerve roots.
== END 2023-11-26 13:32 | disposition home or self-care (01) ==
LOC: RAD 13:31
PROVIDERS: PCP Nurse Practitioner Family; Visit Provider Orthopaedic Surgery
DX: M43.17 Spondylolisthesis, lumbosacral region (principal); M47.817 Spondylosis without myelopathy or radiculopathy, lumbosacral region; M48.07 Spinal stenosis, lumbosacral region
CPT/HCPCS: 72148

== ENCOUNTER 2024-01-06 08:01 | Day surgery (SDC) | payer BC, MEDICAID, SELFPAY ==
[2024-01-06] VITALS (13 sets, daily range): BP systolic 122–150; BP diastolic 83–104; PULSE 82–100; RESP 8–16; TEMP 36.4–37; O2SAT 94–100; BMI 18.7
[2024-01-06 08:43] LABS: OR HCG Qualitative Urine Negative (Negative)
--- NOTE | 2024-01-06 09:11 | W.PM.OPSUD ---
Surgery/Procedure H&P Update DATE OF PROCEDURE: January 06, 2024 DATE H&P PERFORMED: 12/10/23 H&P UPDATE INFORMATION: I have reviewed H&P completed within last 30 days, I have examined patient prior to procedure and No changes to prior documentation CHANGES TO PREVIOUS DOCUMENTATION: CT demonstrates a healed left intertrochanteric femur fracture she is continue to have pain as well as bursitis and she like to have the hardware removed. She understands the ins and outs procedure the risks benefits complication alternatives of surgery through shared decision-making elects proceed with surgical intervention all questions answered. PREOP DIAGNOSIS: Left hip deep orthopedic hardware painful PRIMARY INDICATION FOR PROCEDURE: Left hip painful orthopedic hardware PLANNED PROCEDURE: Operation Date: 01/06/24 09:30 Proposed Procedures p Hardware Removal Trochanteric Nail(Left) - Kadeem Gallegos DO
--- NOTE | 2024-01-06 09:18 | P.ANESUD_ITS ---
Pre-Anesthetic Update Pre-Anesthetic Assessment: Date of Surgery/Procedure: 01/06/24 Preop Citlalli gnosis: Left hip deep orthopedic hardware painful Proposed Procedure: Operation Date: 01/06/24 09:30 Proposed Procedures p Hardware Removal Trochanteric Nail(Left) - Kadeem Gallegos, DO Any changes to Pre-Anesthetic Assessment?: No Last Intake: Intake Last Liquid Date 01/05/24 Last Liquid Time 18:00 Last Solid Date 01/05/24 Last Solid Time 18:00 Vitals: Temperature 97.6 F 01/06/24 08:26 Temperature Source Temporal Artery S can 01/06/24 08:26 Pulse Rate 97 01/06/24 08:26 Pulse Rhythm Regular 01/06/24 08:37 Pulse Strength 3+ Normal 01/06/24 08:37 Respiratory Rate 16 01/06/24 08:26 Blood Pressure 124/93 01/06/24 08:26 Blood Pressure Tamy n 103 01/06/24 08:26 Pulse Oximetry 96 01/06/24 08:26 Oxygen Delivery Me thod Room Air 01/06/24 08:37 Exam: Pre-Anes Outpt Exam: alert, oriented x 3, clear to auscultation bilaterally and regular rate & rhythm Cardiac Studies: 2 No Data to Display
[2024-01-06] MEDS: sodium chloride 0.9% 1,000 ML 30 ML IV (09:19)
[2024-01-06] MEDS: ketorolac 30 mg/mL INJ IVP (09:21)
[2024-01-06] MEDS: scopolamine 1.5 Patch 1 PATCH TRANSDERMA (09:21)
[2024-01-06] MEDS: acetaminophen 1,000 MG/100 ML PIGGYBACK 400 MG IV (09:21)
[2024-01-06 09:38] LABS: Basophils % 0.5 %; Eosinophils # 0.2 10^3/uL (0.0-0.8); Eosinophils % 1.8 %; Hematocrit 31.4 % (36-47); Lymphocytes # 2.6 10^3/uL (0.8-4.8); Lymphocytes % 31.5 %; Mean Corpuscular Volume 105.7 fl (85-98); Monocytes # 0.6 10^3/uL (0.2-0.9); Monocytes % 7.1 %; Neutrophils # 4.79 10^3/uL (1.8-7.7); Neutrophils % 58.6 %; Nucleated Red Blood Cells % 0 %; Platelet Count 254 10^3/cmm (157-399); Red Blood Count 2.97 10^6/uL (3.85-5.65); Red Cell Distribution Width 14.1 % (12.1-15.1); White Blood Count 8.17 10^3/uL (3.29-11.43)
[2024-01-06] MEDS: ceFAZolin 2,000 MG in sodium chloride 0.9% (plus) 50 ML 100 MG IV (09:47)
[2024-01-06 09:58] LABS: Blood Urea Nitrogen 7 mg/dL (6-20); Calcium 9.3 mg/dL (8.5-10.5); Carbon Dioxide 23 mmol/L (22-29); Chloride 101 mmol/L (98-107); Glomerular Filtration Rate 132.8 mL/min (90-130); Glucose 82 mg/dL (65-115); Osmolality Calculated 283 mOsm/kg (285-295); Sodium 138 mmol/L (136-145)
--- NOTE | 2024-01-06 11:04 | W.PM.BPON ---
Date of Procedure: 01/06/2024 Surgeon: Kadeem Gallegos DO Office Services Representative(s): Luis Gallegos PA-C Procedure(s) performed: Left hip trochanteric nail removal Findings of the procedure(s): Patient was found to have a healed left hip intertrochanteric femur fracture underwent procedure as planned without issues or complications Estimated blood loss: 50 mL Specimen(s) removed: Trochanteric femur nail hardware removed Post-operative diagnosis: Painful left hip deep orthopedic hardware, healed left intertrochanteric femur fracture
--- NOTE | 2024-01-06 11:07 | P.OP_ITS ---
Operative Report Date of procedure: January 06, 2024 Pre-op diagnosis: Left hip painful deep orthopedic hardware, status post healed left intertrochanteric femur fracture Post-op diagnosis: Healed left intertrochanteric femur fracture, painful deep orthopedic hardware (trochanteric nail) Procedure done: Left hip trochanteric femur nail removal Specimens removed/disposition: Removal left hip trochanteric femur nail (gamma nail) Surgeon: Kadeem Gallegos DO Professor Of Voice: JUDE Mitchell was necessary for assistance in this case with retraction, assistance with removal of hardware as well as assistance with closure and dressing application Anesthesia: General Estimated blood loss (mL): 50 IV fluids: 700 mL Urine output: None Complications: None Findings: Healed left intertrochanteric femur fracture, underwent procedure as planned without issues or complications Condition: stable Disposition: same day Brief History: Patient is a pleasant 48-year-old female who had sustained a left intertrochanteric femur fracture and underwent fixation on 08/28/2022. She is went on to heal with an uncomplicated course. She she has had noticeable tenderness to palpation over the trochanteric bursa over the lateral lag screw as well as she just states of pain associated with the hardware. We talked ab out her treatment options at this point time we did get a CT scan and has been verified the fracture is completely healed and she would like to have this removed we talked about the ins and outs procedure and through shared decision making understanding her risk benefits complication terms of surgery she elects proceed with left hip deep orthopedic hardware removal. She understands and agrees with current plan. All questions answered. Procedure: Patient was seen evaluate in the preoperative preoperative holding area. Consent was reviewed and signed with patient correct extremity marked. Patient was then seen evaluated by anesthesia once cleared for surgery patient was then taken back to the operative suite she underwent anesthesia per the anesthesia department once properly anesthetized she was then placed transferred onto the Mckittrick bed all bony prominences well-padded patient appropriate secured to the bed. Traction boots were then subsequently a applied and she was leg secured to the legs of the Mckittrick bed. At this point in time the left hip was then appropriately x-rayed to verify healed fracture as well as to verify appropriate x-ray and positioning. This point time the left hip was then prepped and draped standard orthopedic fashion. Final timeout performed. Patient received appropriate preoperative antibiotics. Used patient's previous trochanteric incision proximally with plan to remove the setscrew and secure the extraction device proximally. Sharp scalpel incision was made through skin only then utilized Bovie electrocautery to maintain exact hemostasis used a Barrera elevator to split the fascia and come down directly over the greater trochanter. I utilized a guidewire to cannulate directly into the top part of the nail proximally. Once this was set I utilized a off to curette out any bone that would inhibit any threading. Once this was done I then subsequently utilized the flexible screwdriver to remove the setscrew atraumatically and was removed. Next I utilized the extraction device and threaded this and secured the purchase of the nail proximally. Next I then made a small incision laterally and then utilized a Barrera and curette to curette out the lag screw of any bony fragments and then at this point I then placed the K wire guidepin through the cannula of the lag screw and then guided my cannulated screwdriver and backed out the lag screw atraumatically. Finally I then made an additional small stab incision over the distal interlocking screw was. Small stab incision was made utilized a curette as well to the bluntly removing use x- ray to center over the distal locking screw I then utilized appropriate screwdriver this was secured to the lag screw and this was subsequently backed out atraumatically with no complications. Next I utilized a back slap hammer to back out the gamma nail atraumatically. There is no intraoperative fractures noted I then took the x-ray did live fluoroscopic imaging rotating internal/external rotation and the femoral head and trochanter all moved as a unit there was no movement at the previous intertrochanteric fracture site I then did this subsequently in lateral position as well to confirm lateral with anterior and posterior complete healing but this only designated as well. This point in time was complete the case final x-rays were then subsequently taken I then thoroughly irrigated out the incision sites these were then subsequently hemostasis maintained with electrocautery as well is then closed in layered fashion of 0 Vicryl, 2-0 Vicryl and skin closed with Monocryl and Dermabond. Incisions covered with Silverlon patient was then awakened from anesthesia and taken back in stable condition. Disposition: Patient taken back in stable condition, recovering well show we discharge appropriate pain medication we will start her on just an 81 aspirin just for blood clot prevention just once a day, given nail removal will give her crutches postoperatively she can be partial weightbearing and just keep pain below the threshold. Will see her back in 2 weeks in the office for incision check and repeat x-rays. Patient understands agrees to current plan. Questions answered.
--- NOTE | 2024-01-06 11:38 | PM.PACU ---
PACU note Narrative: Patient is a 48-year-old female just underwent orthopedic hardware removal of the left femur. Pt transferred to PACU in stable condition. Dressing is dry. pt is awake and alert. pt can wiggle toes and plantarflex and dorsiflex foot. pt able to perform straight leg raise, Femoral nerve intact. Distal pulses are palpable toes are warm and well-perfused. Cap refill is normal and under 2 seconds. Sensation to foot is intact. Pain is controlled. Exam: awake Disposition: discharged
[2024-01-06] MEDS: fentaNYL 50 mcg/mL INJ 2mL IVP (11:40)
--- NOTE | 2024-01-06 11:49 | ANE.PACU2 ---
Inpatient post-anesthesia follow up: Vital signs: Temperature 97.9 F Pulse Rate 91 Respiratory Rate 13 Blood Pressure 143/104 Pulse Oximetry 94 Oxygen Delivery Me thod Room Air Oxygen Flow Rate Fraction of Inspir ed Oxygen Hydration adequate: Yes Nausea and vomiting: No Pain level: 3 Mental status: Baseline
[2024-01-06] MEDS: HYDROcodone-acetaminophen 5-325 mg Tablet 1 TAB PO (12:44)
--- NOTE | 2024-01-06 12:54 | SUR.PHASEII ---
12:45 DRESSING DRY AND INTACT. ROM AND SENSATION AND PULSE OF LEFT FOOT. 12:50 MEDICATED FOR PAIN.
--- NOTE | 2024-01-06 15:08 | XR_ITS ---
WS: [id number] XR hip LT 2-3V wo/w pel* [id number] REASON FOR EXAM: KHLOE PICS FINDINGS: Previous intertrochanteric fracture fixation appliances have been removed. Manipulation of the left femur does not reveal pseudoarthrosis. Apparent complete healing. XR/XR hip LT 2-3V wo/w pel* [id number] IMPRESSION: Intertrochanteric fracture appears fully healed.
== END 2024-01-06 15:30 | disposition home or self-care (01) ==
PROVIDERS: Anesthesiology; Physician Assistant; PCP Family Medicine; Visit Provider Student in an Organized Health Care Education/Training Program
PROC: (CPT 20680; principal; 2024-01-06 09:10)
DX: T84.84XA Pain due to internal orthopedic prosthetic devices, implants and grafts, initial encounter (principal)
CPT/HCPCS: 20680; 36415; 73502; 76000; 80048; 81025; 85025; 86850; 86900; C1713; J0131; J0690; J1100; J1885; J2250; J2405; J2704; J3010; J7030

== ENCOUNTER → 2024-01-09 14:54 | Outpatient (BNVA) | payer BC, MEDICAID, SELFPAY | PROVIDERS: PCP Family Medicine; Visit Provider Orthopaedic Surgery | DX: M54.2 Cervicalgia (principal) | CPT/HCPCS: 72050 ==

== ENCOUNTER → 2024-01-21 10:03 | Outpatient (BNVA) | payer BC, MEDICAID, SELFPAY | PROVIDERS: PCP Family Medicine; Visit Provider Physician Assistant | DX: Z98.890 Other specified postprocedural states | CPT/HCPCS: 73502 ==

== ENCOUNTER → 2024-06-23 10:08 | Outpatient (BNVA) | payer BC, MEDICAID, SELFPAY | PROVIDERS: PCP Family Medicine; Visit Provider Nurse Practitioner | DX: G56.03 Carpal tunnel syndrome, bilateral upper limbs (principal) | CPT/HCPCS: 73130 ==

== ENCOUNTER → 2024-06-25 14:19 | Outpatient (BNVA) | payer BC, MEDICAID, SELFPAY | PROVIDERS: PCP Family Medicine; Visit Provider Podiatrist Foot & Ankle Surgery | DX: M79.672 Pain in left foot (principal); M25.872 Other specified joint disorders, left ankle and foot | CPT/HCPCS: 73630 ==